=== PATIENT | male | born 1970 | race Caucasian/White ===

== ENCOUNTER → 2017-06-09 | Outpatient (CLI) | payer OTHER ==
--- NOTE | 2017-06-09 08:33 | MR ---
EXAMINATION TYPE: MR brain wo/w con DATE OF EXAM: 06/09/2017 COMPARISON: Outside CT head 05/07/2017 HISTORY: 47-year-old male Migraines without aura, not intractable TECHNIQUE: Multiplanar, multisequence images of the brain and brainstem were acquired before and aft er administration of 7 mL IV Gadavist. Diffusion weighted imaging is performed. FINDINGS: No evidence for acute infarction, hemorrhage, mass, mass effect, midline shift, herniation, effacemen t of basal cisterns, or extra-axial fluid collection. The ventricles and sulci are age-appropriate. Major intracranial flow voids are intact. T2/FLAIR weighted sequences show a solitary 5 mm bright signal focus in the subcortical left frontal lobe. Midline structures demonstrate normal morphology. The craniocervical junction is normal. Post contrast images demonstrate no evidence of pathologic enhancement. Dural venous sinuses are pat ent. Mild mucosal thickening maxillary sinuses and frontal sinuses. Moderate scattered mucosal thickening throughout the ethmoid air cells. Mucosal retention cyst inferior right maxillary sinus. Globes are i ntact. IMPRESSION: 1. No acute intracranial abnormality seen. 2. Solitary 5 mm bright white matter focus in the left frontal lobe. This is nonspecific but could re present an area of ischemic demyelination related to chronic migraines. 3. Mild to moderate chronic paranasal sinus disease.
== END | disposition home or self-care (01) ==
LOC: RADMRIMAIN 07:02
PROVIDERS: ATTEND Family Medicine
DX: R90.89 Other abnormal findings on diagnostic imaging of central nervous system (principal); Z86.69 Personal history of other diseases of the nervous system and sense organs
CPT/HCPCS: 70553; A9581

== ENCOUNTER 2018-02-21 14:28 | Emergency (ER) | payer OTHER ==
[2018-02-21] MEDS ORDERED: SODIUM CHLORIDE 0.9% 500 ML 500 ML IV STA (14:55)
--- NOTE | 2018-02-21 14:58 | ED ---
General Adult HPI - General Chief complaint: Arrhythmia/Palpitations Stated complaint: Palpitations Time Seen by Provider: 02/21/18 14:30 Source: patient, RN notes reviewed Mode of arrival: ambulatory Limitations: no limitations - History of Present Illness Initial comments: This is a 47-year-old male who smokes he comes into the emergency department today because he has been feeling some palpitations. Patient states they usually last about 1-2 seconds and then they go away. Patient states it happened 3 times yesterday while he was at work. Patient states he doesn't typically happen when he is lying around. Patient states when it does occur it seems to take his breath away for just that second. Patient denies any diaphoretic episodes. Patient denies any pain. Patient denies any nausea. Patient denies abdominal pain patient denies any swelling to the legs or calf tenderness. Patient states recently had a cold is been getting slowly better. Patient states he was coughing up sputum but no longer. Patient denies any lightheadedness dizziness or near syncopal episode. - Related Data Previous Rx's Medication Instructions Recorded Naproxen [Naprosyn] 500 mg PO Q12HR #60 tab 03/06/14 Allergies Allergy/AdvReac Type Severity Reaction Status Date / Time Opioids - Morphine Analogues AdvReac Nausea & Verified 02/21/18 14:33 Vomiting Review of Systems ROS Statement: Those systems with pertinent positive or pertinent negative responses have been documented in the HPI. ROS Other: All systems not noted in ROS Statement are negative. Past Medical History Past Medical History: Mitral Valve Prolapse (MVP), Pneumonia Additional Past Medical History / Comment(s): Bronchitis usually every year, kidney stones History of Any Multi-Drug Resistant Organisms: None Reported Past Surgical History: No Surgical Hx Reported Past Psychological History: No Psychological Hx Reported Smoking Status: Current every day smoker Past Alcohol Use History: Rare Past Drug Use History: None Reported General Exam - General Exam Comments Initial Comments: GENERAL: Patient is well-developed and well-nourished. Patient is nontoxic and well- hydrated and is in mild distress. ENT: Neck is soft and supple. No significant lymphadenopathy is noted. Oropharynx is clear. Moist mucous membranes. Neck has full range of motion without eliciting any pain. EYES: The sclera were anicteric and conjunctiva were pink and moist. Extraocular movements were intact and pupils were equal round and reactive to light. Eyelids were unremarkable. PULMONARY: Unlabored respirations. Good breath sounds bilaterally. No audible rales rhonchi or wheezing was noted. CARDIOVASCULAR: There is a regular rate and rhythm without any murmurs gallops or rubs. ABDOMEN: Soft and nontender with normal bowel sounds. No palpable organomegaly was noted. There is no palpable pulsatile mass. SKIN: Skin is clear with no lesions or rashes and otherwise unremarkable. NEUROLOGIC: Patient is alert and oriented x3. Cranial nerves II through XII are grossly intact. Motor and sensory are also intact. Normal speech, volume and content. Symmetrical smile. MUSCULOSKELETAL: Normal extremities with adequate strength and full range of motion. No lower extremity swelling or edema. No calf tenderness. LYMPHATICS: No significant lymphadenopathy is noted PSYCHIATRIC: Normal psychiatric evaluation. Limitations: no limitations Course Vital Signs 02/21/18 02/21/18 14:32 15:00 Temperature 97.6 F Pulse Rate 91 80 Respiratory 18 20 Rate Blood Pressure 145/88 137/90 O2 Sat by Pulse 100 99 Oximetry Medical Decision Making - Medical Decision Making EKG shows normal sinus rhythm at 81 bpm AL interval 266 dresses 90 QT interval 360 QTC is 427. Patient's EKG shows no ST segment elevation or depression Patient has been a symptomatically throughout his ED stay. Chest x-ray shows no acute abnormalities - Lab Data Result diagrams: 02/21/18 14:50 02/21/18 14:50 Lab Results 02/21/18 02/21/18 02/21/18 Range/Units 14:50 14:50 14:50 WBC 4.6 (3.8-10.6) k/uL RBC 5.25 (4.30-5.90) m/uL Hgb 15.8 (13.0-17.5) gm/dL Hct 47.6 (39.0-53.0) % MCV 90.7 (80.0-100.0) fL MCH 30.1 (25.0-35.0) pg MCHC 33.2 (31.0-37.0) g/dL RDW 12.6 (11.5-15.5) % Plt Count 217 (150-450) k/uL Neutrophils % 59 % Lymphocytes % 25 % Monocytes % 10 % Eosinophils % 2 % Basophils % 1 % Neutrophils # 2.7 (1.3-7.7) k/uL Lymphocytes # 1.1 (1.0-4.8) k/uL Monocytes # 0.5 (0-1.0) k/uL Eosinophils # 0.1 (0-0.7) k/uL Basophils # 0.0 (0-0.2) k/uL PT (9.0-12.0) sec INR (<1.2) APTT (22.0-30.0) sec D-Dimer (<0.60) mg/L FEU Sodium 140 (137-145) mmol/L Potassium 4.2 (3.5-5.1) mmol/L Chloride 107 (98-107) mmol/L Carbon Dioxide 26 (22-30) mmol/L Anion Gap 7 mmol/L BUN 9 (9-20) mg/dL Creatinine 0.93 (0.66-1.25) mg/dL Est GFR (CKD-EPI)AfAm >90 (>60 ml/min/1.73 sqM) Est GFR (CKD-EPI)NonAf >90 (>60 ml/min/1.73 sqM) Glucose 117 H (74-99) mg/dL Calcium 9.3 (8.4-10.2) mg/dL Magnesium 2.0 (1.6-2.3) mg/dL Total Bilirubin 0.5 (0.2-1.3) mg/dL AST 21 (17-59) U/L ALT 27 (21-72) U/L Alkaline Phosphatase 72 (38-126) U/L Total Creatine Kinase 60 (55-170) U/L CK-MB (CK-2) <0.2 (0.0-2.4) ng/mL CK-MB (CK-2) Rel Index Troponin I <0.012 (0.000-0.034) ng/mL Total Protein 7.0 (6.3-8.2) g/dL Albumin 4.4 (3.5-5.0) g/dL TSH 1.310 (0.465-4.680) mIU/L 02/21/18 Range/Units 14:50 WBC (3.8-10.6) k/uL RBC (4.30-5.90) m/uL Hgb (13.0-17.5) gm/dL Hct (39.0-53.0) % MCV (80.0-100.0) fL MCH (25.0-35.0) pg MCHC (31.0-37.0) g/dL RDW (11.5-15.5) % Plt Count (150-450) k/uL Neutrophils % % Lymphocytes % % Monocytes % % Eosinophils % % Basophils % % Neutrophils # (1.3-7.7) k/uL Lymphocytes # (1.0-4.8) k/uL Monocytes # (0-1.0) k/uL Eosinophils # (0-0.7) k/uL Basophils # (0-0.2) k/uL PT 9.7 (9.0-12.0) sec INR 0.9 (<1.2) APTT 25.9 (22.0-30.0) sec D-Dimer 0.57 (<0.60) mg/L FEU Sodium (137-145) mmol/L Potassium (3.5-5.1) mmol/L Chloride (98-107) mmol/L Carbon Dioxide (22-30) mmol/L Anion Gap mmol/L BUN (9-20) mg/dL Creatinine (0.66-1.25) mg/dL Est GFR (CKD-EPI)AfAm (>60 ml/min/1.73 sqM) Est GFR (CKD-EPI)NonAf (>60 ml/min/1.73 sqM) Glucose (74-99) mg/dL Calcium (8.4-10.2) mg/dL Magnesium (1.6-2.3) mg/dL Total Bilirubin (0.2-1.3) mg/dL AST (17-59) U/L ALT (21-72) U/L Alkaline Phosphatase (38-126) U/L Total Creatine Kinase (55-170) U/L CK-MB (CK-2) (0.0-2.4) ng/mL CK-MB (CK-2) Rel Index Troponin I (0.000-0.034) ng/mL Total Protein (6.3-8.2) g/dL Albumin (3.5-5.0) g/dL TSH (0.465-4.680) mIU/L Disposition Clinical Impression: Palpitations Disposition: HOME SELF-CARE Instructions: Heart Palpitations (ED) Is patient prescribed a controlled substance at d/c from ED?: No Referrals: Romario Daniel MD [Primary Care Provider] - 1-2 days Time of Disposition: 16:30
[2018-02-21 15:29] LABS: ALT 27 U/L (21-72); AST 21 U/L (17-59); Albumin 4.4 g/dL (3.5-5.0); Alkaline Phosphatase 72 U/L (38-126); Anion Gap 7 mmol/L; Blood Urea Nitrogen 9 mg/dL (9-20); Calcium 9.3 mg/dL (8.4-10.2); Carbon Dioxide 26 mmol/L (22-30); Chloride 107 mmol/L (98-107); Glucose 117 mg/dL (74-99); Potassium 4.2 mmol/L (3.5-5.1); Sodium 140 mmol/L (137-145); Total Bilirubin 0.5 mg/dL (0.2-1.3)
[2018-02-21 15:31] LABS: D-Dimer 0.57 mg/L FEU (<0.60); INR 0.9 (<1.2); Partial Thromboplastin Time 25.9 sec (22.0-30.0); Prothrombin Time 9.7 sec (9.0-12.0)
[2018-02-21 15:37] LABS: Basophils % (A) 1 %; Eosinophils # (A) 0.1 k/uL (0-0.7); Eosinophils % (A) 2 %; HCT 47.6 % (39.0-53.0); HGB 15.8 gm/dL (13.0-17.5); Lymphocytes # (A) 1.1 k/uL (1.0-4.8); Lymphocytes % (A) 25 %; MCH 30.1 pg (25.0-35.0); MCHC 33.2 g/dL (31.0-37.0); MCV 90.7 fL (80.0-100.0); Mean Platelet Volume 6.4; Monocytes # (A) 0.5 k/uL (0-1.0); Monocytes % (A) 10 %; Neutrophils # (A) 2.7 k/uL (1.3-7.7); Neutrophils % (A) 59 %; Platelet Count 217 k/uL (150-450); RBC 5.25 m/uL (4.30-5.90); RDW 12.6 % (11.5-15.5); WBC 4.6 k/uL (3.8-10.6)
[2018-02-21 15:39] LABS: Creatine Kinase 60 U/L (55-170)
--- NOTE | 2018-02-21 15:44 | XR ---
EXAMINATION TYPE: XR chest 2V DATE OF EXAM: 02/21/2018 COMPARISON: Prior chest x-ray 11/06/2013 HISTORY: Dysrhythmia TECHNIQUE: Frontal and lateral views of the chest are obtained. FINDINGS: There is no focal air space opacity, pleural effusion, or pneumothorax seen. The cardiac silhouette size is within normal limits. The osseous structures are intact. There are overlying car diac leads. IMPRESSION: No acute cardiopulmonary process.
[2018-02-21 15:52] LABS: Creatine Kinase MB <0.2 ng/mL (0.0-2.4); Troponin I <0.012 ng/mL (0.000-0.034)
[2018-02-21 16:42] VITALS: BP 128/88; PULSE 78; RESP 18; TEMP 98.2
== END 2018-02-21 16:38 | disposition home or self-care (01) ==
LOC: EC 14:28
DX: R00.2 Palpitations (principal); I34.1 Nonrheumatic mitral (valve) prolapse; F17.200 Nicotine dependence, unspecified, uncomplicated; Z88.5 Allergy status to narcotic agent
CPT/HCPCS: 36415; 71046; 80053; 82550; 82553; 83735; 84443; 84484; 85025; 85379; 85610; 85730; 93005; 99285

== ENCOUNTER 2018-03-16 17:15 | Emergency (ER) | payer OTHER ==
[2018-03-16 17:31] VITALS: RESP 18
[2018-03-16 18:58] VITALS: BP 123/84; PULSE 94; TEMP 98.2
--- NOTE | 2018-03-16 19:31 | ED ---
General Adult HPI - General Chief complaint: ENT Stated complaint: Ear/Neck swelling Time Seen by Provider: 03/16/18 18:52 Source: patient, RN notes reviewed Mode of arrival: ambulatory Limitations: no limitations - History of Present Illness Initial comments: 47-year-old male presents to the emergency department for a chief complaint of erythema about the left ear. Patient states this started 2 days ago. He states is was scaling yesterday but today does not appear to be scaly. He states since that time he has had some pain and swelling anterior and posterior to the left ear. Patient does admit to having a cold recently. Patient denies fevers or chills. Patient denies any tooth pain. Patient denies any history of diabetes. Patient has no other complaints at this time including shortness of breath, chest pain, abdominal pain, nausea or vomiting, headache, or visual changes. - Related Data Home Medications Medication Instructions Recorded Confirmed Butalb/APAP/Caff 50-325-40Mg 1 tab PO BID 03/16/18 03/16/18 [Fioricet 50-325-40] Ibuprofen [Motrin] 800 mg PO BID 03/16/18 03/16/18 Allergies Allergy/AdvReac Type Severity Reaction Status Date / Time Opioids - Morphine Analogues AdvReac Nausea & Verified 03/16/18 19:13 Vomiting Review of Systems ROS Statement: Those systems with pertinent positive or pertinent negative responses have been documented in the HPI. ROS Other: All systems not noted in ROS Statement are negative. Past Medical History Past Medical History: Mitral Valve Prolapse (MVP), Pneumonia Additional Past Medical History / Comment(s): Bronchitis usually every year, kidney stones History of Any Multi-Drug Resistant Organisms: None Reported Past Surgical History: No Surgical Hx Reported Past Psychological History: No Psychological Hx Reported Smoking Status: Current every day smoker Past Alcohol Use History: Rare Past Drug Use History: None Reported General Exam Limitations: no limitations General appearance: alert, in no apparent distress Head exam: Present: atraumatic, normocephalic. Absent: normal inspection (4 cm x 4 cm area of mild erythema noted above the L ear) Eye exam: Present: normal appearance, PERRL, EOMI. Absent: scleral icterus, conjunctival injection, periorbital swelling ENT exam: Present: normal exam, normal oropharynx, mucous membranes moist, TM's normal bilaterally (90 erythematous tympanic membranes bilaterally), normal external ear exam (No edema or erythema noted of the ear canal, no tenderness to palpation of the mastoid process). Absent: other (No appreciable swelling noted anterior or posterior to the left ear. Patient does have some tenderness along the submandibular and posterior auricular lymph nodes. non erythematous, no evidence of cellulitic infection or abscess) Neck exam: Present: normal inspection, full ROM. Absent: tenderness, meningismus, lymphadenopathy Respiratory exam: Present: normal lung sounds bilaterally. Absent: respiratory distress, wheezes, rales, rhonchi, stridor Cardiovascular Exam: Present: regular rate, normal rhythm, normal heart sounds. Absent: systolic murmur, diastolic murmur, rubs, gallop, clicks Neurological exam: Present: alert, oriented X3, CN II-XII intact Psychiatric exam: Present: normal affect, normal mood Course Vital Signs 03/16/18 03/16/18 17:28 18:56 Temperature 98.1 F 98.2 F Pulse Rate 99 94 Respiratory 18 18 Rate Blood Pressure 152/89 123/84 O2 Sat by Pulse 99 98 Oximetry Medical Decision Making - Medical Decision Making 27-year-old male presents to the emergency department for a chief complaint of rash on scalp and left ear pain. This started yesterday. There is a 4 x 4 centimeter area of erythema noted above the left ear that was apparently scaly yesterday, no scaling today. No vesicles noted on this. No itching or pruritus. Patient also complaining of pain anterior and posterior to the left ear. No appreciable swelling noted. No erythema. Patient does have small submandibular and posterior or regular lymph nodes noted which is likely a zinc patient's tenderness. Tympanic membrane is within normal limits, no otitis media. No evidence of otitis externa, no mastoid tenderness. At this time symptoms likely stemming from fungal irritation. Patient will buy Selsun Blue [id number] I did offer to give scripts but he does not want this. Patient did also have a cold last week and may have eustachian tube dysfunction causing ear pain, will use nasal spray as well. Did discuss following up with primary care and dermatology. Discussed returning here if symptoms are worsening instead of resolving. Disposition Clinical Impression: Rash Disposition: HOME SELF-CARE Condition: Good Instructions (If sedation given, give patient instructions): Tinea Capitis (ED) Additional Instructions: Please use Selsun Blue [id number]. Use nasal spray as well. Please follow- up with primary care and dermatology in 1-2 days. If symptoms are worsening or not resolving or you develop fevers return here to the emergency department. Is patient prescribed a controlled substance at d/c from ED?: No Referrals: Romario Daniel MD [Primary Care Provider] - 1-2 days Diane Sanchez MD [STAFF PHYSICIAN] - 1-2 days Time of Disposition: 19:37
== END 2018-03-16 19:54 | disposition home or self-care (01) ==
LOC: EC 17:15
DX: R21 Rash and other nonspecific skin eruption (principal); H92.02 Otalgia, left ear; F17.200 Nicotine dependence, unspecified, uncomplicated; Z79.899 Other long term (current) drug therapy; Z79.1 Long term (current) use of non-steroidal anti-inflammatories (NSAID); Z88.5 Allergy status to narcotic agent
CPT/HCPCS: 99283

== ENCOUNTER 2018-07-04 14:53 | Emergency (ER) | payer OTHER ==
[2018-07-04] MEDS ORDERED: DIAZEPAM 5 MG/ML 2 ML INJ IM ONE (15:20)
[2018-07-04] MEDS ORDERED: methylPREDNISolone SOD SUCCI 125 MG/2 ML VIAL IM ONE (15:20)
[2018-07-04] MEDS ORDERED: KETOROLAC 60 MG/2 ML VIAL IM STA (15:20)
--- NOTE | 2018-07-04 15:25 | ED ---
General Adult HPI - General Source: patient, RN notes reviewed, old records reviewed Mode of arrival: ambulatory Limitations: no limitations <Carmella Leroy - Last Filed: 07/04/18 16:44> <Aurora Villa - Last Filed: 07/04/18 16:58> - General Chief complaint: Neck Pain/Injury Stated complaint: Neck pain Time Seen by Provider: 07/04/18 15:14 - History of Present Illness Initial comments: 48-year-old male presents emergency department today for evaluation complains of neck Pain with minimal range of motion. Patient reports that he's been having symptoms for the past 4 days. He states he has pain with left and right movement of the neck. He denies any fall or trauma. He states ever had this happen before. He states he's had lack of sleep due to the neck pain. He feels that his muscles are tight throughout his scalp, neck and shoulder. (Carmella Leroy) - Related Data Home Medications Medication Instructions Recorded Confirmed Butalb/APAP/Caff 50-325-40Mg 1 tab PO BID 03/16/18 03/16/18 [Fioricet 50-325-40] Ibuprofen [Motrin] 800 mg PO BID 03/16/18 03/16/18 Previous Rx's Medication Instructions Recorded Dexamethasone 0.75 mg PO DAILY #12 tab 07/04/18 Diazepam [Valium] 5 mg PO Q8HR PRN 3 Days #9 tab 07/04/18 Ibuprofen 600 mg PO TID #20 tablet 07/04/18 Allergies Allergy/AdvReac Type Severity Reaction Status Date / Time Opioids - Morphine Analogues AdvReac Nausea & Verified 07/04/18 15:01 Vomiting Review of Systems ROS Other: All systems not noted in ROS Statement are negative. <Carmella Leroy - Last Filed: 07/04/18 16:44> ROS Other: All systems not noted in ROS Statement are negative. <Aurora Villa - Last Filed: 07/04/18 16:58> ROS Statement: Those systems with pertinent positive or pertinent negative responses have been documented in the HPI. Past Medical History Past Medical History: Mitral Valve Prolapse (MVP), Pneumonia Additional Past Medical History / Comment(s): Bronchitis usually every year, kidney stones History of Any Multi-Drug Resistant Organisms: None Reported Past Surgical History: No Surgical Hx Reported Past Psychological History: No Psychological Hx Reported Smoking Status: Current every day smoker Past Alcohol Use History: Rare Past Drug Use History: None Reported <Carmella Leroy - Last Filed: 07/04/18 16:44> General Exam Limitations: no limitations General appearance: alert, in no apparent distress Head exam: Present: atraumatic, normocephalic, normal inspection Eye exam: Present: normal appearance, PERRL, EOMI. Absent: scleral icterus, conjunctival injection, periorbital swelling ENT exam: Present: normal exam, mucous membranes moist Neck exam: Present: normal inspection, tenderness (Patient has tenderness and spasms over the right paraspinal cervical muscles.). Absent: meningismus, lymphadenopathy Respiratory exam: Present: normal lung sounds bilaterally. Absent: respiratory distress, wheezes, rales, rhonchi, stridor Cardiovascular Exam: Present: regular rate, normal rhythm, normal heart sounds. Absent: systolic murmur, diastolic murmur, rubs, gallop, clicks GI/Abdominal exam: Present: soft, normal bowel sounds. Absent: distended, tenderness, guarding, rebound, rigid Extremities exam: Present: normal inspection, full ROM, normal capillary refill. Absent: tenderness, pedal edema, joint swelling, calf tenderness Back exam: Present: normal inspection Neurological exam: Present: alert, oriented X3, CN II-XII intact Psychiatric exam: Present: normal affect, normal mood Skin exam: Present: warm, dry, intact, normal color. Absent: rash <Carmella Leroy - Last Filed: 07/04/18 16:44> - General Exam Comments Initial Comments: 48-year-old male. Alert and oriented 3. No significant distress. (Carmella Leroy) Course <Carmella Leroy - Last Filed: 07/04/18 16:44> Vital Signs 07/04/18 07/04/18 07/04/18 14:59 15:40 15:45 Temperature 98.5 F Pulse Rate 99 48 L 48 L Respiratory 16 18 18 Rate Blood Pressure 124/84 75/39 98/77 O2 Sat by Pulse 98 99 97 Oximetry 07/04/18 07/04/18 15:50 15:55 Temperature Pulse Rate 81 80 Respiratory 18 18 Rate Blood Pressure 119/77 125/74 O2 Sat by Pulse 98 97 Oximetry - Reevaluation(s) Reevaluation #1: 07/04/18 16:44 All Patient was receiving IM injections he had a vasovagal episode. Blood pressure was low 70/40. IV was established Patient is given a liter bolus, juice. EKG is normal. Patient is reevaluated afterwards feels better at this time. Blood pressures normalized. (Carmella Leroy) Medical Decision Making Interpretation: no acute changes, normal EKG, other - Radiology Data Radiology results: report reviewed <Carmella Leroy - Last Filed: 07/04/18 16:44> <Aurora Villa - Last Filed: 07/04/18 16:58> - Medical Decision Making Patient is a 48-year-old male presents today with 4 days of neck stiffness, concern for torticollis. He has no fall or trauma to the neck. Patient is given IM Solu-Medrol and Toradol. At that time with receiving IM injections and standing up to receive them over his gluteus, Patient had a vasovagal episode. Blood pressure drop. IV was established Patient was given IV fluids, being conscious and resting heavily. He does state that his neck pain is improved but still sore. I was going to offer a Patient IM Valium however after vagal episode discussed using oral medication. Patient will be discharged at this time with diagnosis of torticollis, discharge or steroid anti-inflammatory medicine and muscle relaxer. Discussed ACP follow-up. (Carmella Leroy) I was available for consultation in the emergency department. The history and physical exam were done by the midlevel provider. I was consulted for this patient's care. I reviewed the case with the midlevel provider and based on their presentation of the patient, I agree with the assessment, medical decision making and plan of care as documented. Chart was dictated using [employer] dictation software. Attempts were made to correct any dictation errors however some typographical errors may persist. (Aurora Villa) 07/04/18 16:17 EKG shows normal sinus rhythm. Ventricular rate 83 beats were minute. VT interval is 160 ms. QRS duration is 100 ms. QT QTc is 370/434 ms. (Carmella Leroy) Disposition Is patient prescribed a controlled substance at d/c from ED?: No Time of Disposition: 16:46 <Carmella Leroy - Last Filed: 07/04/18 16:44> <Aurora Villa Austin - Last Filed: 07/04/18 16:58> Clinical Impression: Torticollis, spasmodic, Vasovagal episode Disposition: HOME SELF-CARE Condition: Good Instructions (If sedation given, give patient instructions): Cervical Strain (ED), Spasmodic Torticollis (ED) Additional Instructions: Patient has take medications as prescribed. Alternate between heat and ice over the neck. Follow up with her primary care doctor. Return to the emergency department if any alarming signs or symptoms occur. Prescriptions: Dexamethasone 0.75 mg PO DAILY #12 tab Ibuprofen 600 mg PO TID #20 tablet Diazepam [Valium] 5 mg PO Q8HR PRN 3 Days #9 tab PRN Reason: Spasms Referrals: Romario Daniel MD [Primary Care Provider] - 1-2 days
[2018-07-04] MEDS ORDERED: DIAZEPAM 5 MG TAB PO STA (16:27)
[2018-07-04 16:58] VITALS: BP 118/80; PULSE 76; RESP 16; TEMP 98.3
== END 2018-07-04 16:58 | disposition home or self-care (01) ==
LOC: EC 14:53
DX: G24.3 Spasmodic torticollis (principal); R55 Syncope and collapse; F17.200 Nicotine dependence, unspecified, uncomplicated; Z79.899 Other long term (current) drug therapy; Z88.5 Allergy status to narcotic agent
CPT/HCPCS: 93005; 99284; 96372 ×2; J2930; J1885

== ENCOUNTER → 2018-07-20 | Outpatient (CLI) | payer OTHER ==
--- NOTE | 2018-07-20 12:48 | MR ---
EXAMINATION TYPE: MR knee RT wo con DATE OF EXAM: 07/20/2018 COMPARISON: Plain film 07/08/2018 HISTORY: Right knee pain TECHNIQUE: Multiplanar, multisequence imaging of the right knee is performed without IV contrast. FINDINGS: MEDIAL MENISCUS: There is linear increased signal within the posterior horn of the medial meniscus on T1 and T2-weighted imaging which may correspond to the chondrocalcinosis seen on plain film. There i s on coronal image 18 and sagittal image #7 questionable abnormal extension of the signal to the unde rsurface of the meniscus, there may be a local meniscal cyst present medially. LATERAL MENISCUS: Anterior and posterior horns are intact without tear. CRUCIATE LIGAMENTS: The anterior and posterior cruciate ligaments are intact and unremarkable. COLLATERAL LIGAMENTS: The medial collateral ligament and lateral collateral ligament complex are inta ct and unremarkable. EXTENSOR MECHANISM: Visualized quadriceps and patellar tendons are intact. EFFUSION: Minimal joint effusion in the suprapatellar location. POPLITEAL CYST: No popliteal/cooper cyst. TRICOMPARTMENT SPACES: Maintained CARTILAGE: Some mild heterogeneity in the cartilage in the medial and lateral compartments is noted. BONE MARROW SIGNAL: No focal abnormal marrow signal is appreciated. OTHER: Some fluid signal at the origins of the gastrocnemius musculature could represent partial tea rs or strain. IMPRESSION: Findings suspicious for tear of the medial meniscus within the body portion as described. Chondrocalc inosis and additional findings above.
== END ==
LOC: RADMRIMAIN 07:37
PROVIDERS: ATTEND Orthopaedic Surgery
DX: M11.261 Other chondrocalcinosis, right knee (principal); R93.7 Abnormal findings on diagnostic imaging of other parts of musculoskeletal system

== ENCOUNTER 2018-08-19 09:31 | Day surgery (SDC) | payer OTHER ==
[2018-08-11 17:46] VITALS: BMI 20.9
--- NOTE | 2018-08-18 10:24 | HP ---
HISTORY AND PHYSICAL Surgery is scheduled for 08/19/2018. Akil Wilson is a 48-year-old patient who is seen with progressive right knee pain. After treatment options were discussed with him, he elected to proceed with right knee arthroscopy. Consent regarding the procedure was obtained. PAST MEDICAL HISTORY: His past medical history is noncontributory. PAST SURGICAL HISTORY: Noncontributory. DAILY MEDICATIONS: None. ALLERGIES: Allergies are to OPIOIDS. SOCIAL HISTORY: He smokes 1 pack of cigarettes daily. PHYSICAL EXAMINATION: Physical evaluation of the right knee: Range of motion is -1 / 2 to 110 degrees. Mild effusion. There is tenderness along the medial joint line with positive medial Tristen's. His ligaments are stable. Hip rotation is without pain. Distal neurovascular exam is intact. Radiographs of the right knee revealed mild osteoarthritic changes. An MRI of the right knee revealed medial meniscal tear. IMPRESSION: 1. Internal derangement right knee with medial meniscal tear. 2. Tobacco use. PLAN: Right knee arthroscopy with partial meniscectomy and debridement. MMODL / IJN: [id number] /
[~2018-08-19 09:31] MED LIST: LACTATED RINGERS 1,000 ML IV SCH; LIDOCAINE 1% 20 ML VIAL (10MG/ML) FOR IV START INTRADERMA PRN; ONDANSETRON 4 MG/2 ML VIAL IVP ONE; fentaNYL (PF) 50 MCG/ML 2 ML AMP IVP PRN
[2018-08-19] MEDS ORDERED: DEXAMETHASONE SOD PHOS (MDV) 100 MG/10 ML VIAL IV ONE (10:35)
[2018-08-19] MEDS ORDERED: fentaNYL (PF) 50 MCG/ML 2 ML AMP ONE (11:00)
[2018-08-19] MEDS ORDERED: MIDAZOLAM 2 MG/2 ML VIAL ONE (11:00)
[2018-08-19] MEDS ORDERED: PROPOFOL 10 MG/ML 20 ML VIAL IV ONE (11:00)
[2018-08-19] MEDS ORDERED: LIDOCAINE 1% INJ 10MG/ML (20 ML MDV) ONE (11:00)
[2018-08-19] MEDS ORDERED: BUPIVACAINE (PF) 0.5% 30 ML VIAL INTRAARTIC ONE ×2 (11:22→11:36)
--- NOTE | 2018-08-19 11:48 | P.OP ---
Date of Procedure: 08/19/18 Preoperative Diagnosis: Internal derangement right knee Postoperative Diagnosis: 1. Tear medial meniscus right knee 2. Grade 2/3 chondromalacia medial femoral condyle right knee 3. Reactive synovitis medial, lateral and suprapatellar compartments right knee Procedure(s) Performed: 1. Arthroscopic partial medial meniscectomy right knee 2. Arthroscopic chondroplasty medial femoral condyle right knee 3. Arthroscopic partial synovectomy medial, lateral and suprapatellar compartments right knee Anesthesia: GETA, local Surgeon: Shar Matta Estimated Blood Loss (ml): 7 Pathology: none sent Condition: stable Disposition: PACU Indications for Procedure: 48-year-old patient seen with progressive right knee pain. After having treatment options discussed, he elected to proceed with arthroscopy. Operative Findings: See description of procedure Description of Procedure: Patient was taken to the operative suite. Patient underwent a general anesthetic by the department of anesthesia. Patient was given preoperative antibiotics. The right lower extremity was placed in a well-padded arthroscopic leg xavier. The right leg was prepped and draped in the normal sterile orthopedic fashion. A lateral parapatellar and suprapatellar incision was made. Trochars were inserted. Arthroscopy was initiated. Suprapatellar pouch revealed diffuse thick reactive synovitis. The patellofemoral joint appeared to articulate congruently. There was mild grade 1 chondromalacia with no osteochondral tears present. The scope was guided into the medial gutter. No loose bodies or plica were identified The scope was then guided into the medial compartment. A medial parapatellar incision was made. Trocar inserted followed by probe. There was a intrasubstance white zone tear involving the posterior medial meniscus. There were grade 2/3 chondromalacia changes of the medial femoral condyle with some osteochondral flap tears present. There was thick reactive synovitis anteriorly. I performed a partial medial meniscectomy getting down to stable meniscal tissue. I performed a chondroplasty of the medial femoral condyle getting down to stable osteochondral tissue. I performed a partial synovectomy decompressing the reactive synovitis. The residual meniscus was now probed and found to be stable. The residual osteochondral surface was stable. There was good decompression synovitis. Scope and probe were then guided into the intercondylar notch. Cruciates were identified, probed and found to be stable. The scope and probe were then guided into lateral compartment. Lateral meniscus was probed and found to be stable. There was some thick reactive synovitis anteriorly. There was no chondromalacia. I performed a partial synovectomy decompressing the reactive synovitis. Shaver was removed. There was good decompression synovitis. The scope was in guided back into the suprapatellar compartment. I introduced a motorized shaver into the super patellar compartment. I debrided piecemeal fragments of meniscus I encountered. I performed a partial synovectomy. Shaver was removed. I took one more look on the entire knee, no residual debris. Instruments were now removed from the joint. The joint was infiltrated with .25% Marcaine. Steri- Strips were applied to the portal sites. Sterile dressings were applied. The patient was placed into a ABIGAIL hose. No tourniquet was utilized. The patient was awakened, transferred to a bed and taken to recovery stable satisfactory condition.
[2018-08-19 11:52] VITALS: TEMP 97.8
[2018-08-19] MEDS ORDERED: KETOROLAC 30 MG/ML 1 ML VIAL IVP ONE (11:53)
[2018-08-19] MEDS: HYDROmorphone 1 MG/ML 1 ML SYRINGE IVP ONE ×2 (12:08→12:14)
[2018-08-19] MEDS ORDERED: traMADol 50 MG TAB PO ONE ×2 (12:50)
[2018-08-19 13:35] VITALS: BP 120/68; PULSE 70; RESP 18
== END 2018-08-19 13:40 | disposition home or self-care (01) ==
LOC: OR 09:31
PROVIDERS: ATTEND Orthopaedic Surgery
DX: S83.241A Other tear of medial meniscus, current injury, right knee, initial encounter (principal); X58.XXXA Exposure to other specified factors, initial encounter; M94.261 Chondromalacia, right knee; M65.861 Other synovitis and tenosynovitis, right lower leg; M17.11 Unilateral primary osteoarthritis, right knee; I34.1 Nonrheumatic mitral (valve) prolapse; G43.909 Migraine, unspecified, not intractable, without status migrainosus; F17.210 Nicotine dependence, cigarettes, uncomplicated; Z79.1 Long term (current) use of non-steroidal anti-inflammatories (NSAID); Z88.5 Allergy status to narcotic agent
CPT/HCPCS: 29881; 29876; J2250; J2405; J2001; J3010; J1885; J1170; J1100; J2704

== ENCOUNTER 2019-01-01 17:03 | Emergency (ER) | payer OTHER ==
[2019-01-01 17:21] VITALS: TEMP 97.7
--- NOTE | 2019-01-01 17:23 | ED ---
ENT HPI - General Chief complaint: ENT Stated complaint: Throat Pain Time Seen by Provider: 01/01/19 17:21 Source: patient, RN notes reviewed, old records reviewed Mode of arrival: ambulatory Limitations: no limitations - History of Present Illness Initial comments: This is a 48-year-old male the ER for evaluation patient does say for evaluation regarding sore throat sore throat and neck pain right-sided neck pain difficulty swallowing. Patient is able to eat and drink but when he is eating and drinking sometimes has to clear her throat denying fevers. Symptoms 2 weeks he does have follow-up with primary care first week of January. Otherwise patient has no fevers just complaining of some pain and occasionally difficulty with swallowing. MD complaint: sore throat, difficulty swallowing -: week(s) Location: throat Severity: mild Severity scale (1-10): 2 Quality: stabbing, aching Consistency: constant (Pain), intermittent (Difficulty swallowing) Improves with: none Worsens with: swallowing, eating Context- Dental: history of dental caries, poor dental care Associated Symptoms: pain with swallowing, sore throat - Related Data Home Medications Medication Instructions Recorded Confirmed Ondansetron [Zofran] 4 mg PO Q8HR PRN 08/19/18 08/19/18 Previous Rx's Medication Instructions Recorded Ibuprofen 600 mg PO TID #20 tablet 07/04/18 traMADol HCl [Ultram] 50 mg PO Q6H PRN #15 tab 08/19/18 Allergies Allergy/AdvReac Type Severity Reaction Status Date / Time Opioids - Morphine Analogues AdvReac Nausea & Verified 01/01/19 17:20 Vomiting Review of Systems ROS Statement: Those systems with pertinent positive or pertinent negative responses have been documented in the HPI. ROS Other: All systems not noted in ROS Statement are negative. Past Medical History Past Medical History: Mitral Valve Prolapse (MVP) Additional Past Medical History / Comment(s): Bronchitis usually every year, kidney stones History of Any Multi-Drug Resistant Organisms: None Reported Past Surgical History: No Surgical Hx Reported, Orthopedic Surgery Additional Past Surgical History / Comment(s): ORAL SURGERY Past Anesthesia/Blood Transfusion Reactions: No Reported Reaction Past Psychological History: No Psychological Hx Reported Smoking Status: Current every day smoker Past Alcohol Use History: Occasional Past Drug Use History: None Reported - Past Family History Sister(s) Family Medical History: Cancer General Exam Limitations: no limitations General appearance: alert, in no apparent distress Head exam: Present: atraumatic, normocephalic, normal inspection Eye exam: Present: normal appearance, PERRL, EOMI. Absent: scleral icterus, conjunctival injection, periorbital swelling ENT exam: Present: normal exam, mucous membranes moist Neck exam: Present: normal inspection. Absent: tenderness, meningismus, lymphadenopathy Respiratory exam: Present: normal lung sounds bilaterally. Absent: respiratory distress, wheezes, rales, rhonchi, stridor Cardiovascular Exam: Present: regular rate, normal rhythm, normal heart sounds. Absent: systolic murmur, diastolic murmur, rubs, gallop, clicks GI/Abdominal exam: Present: soft, normal bowel sounds. Absent: distended, tenderness, guarding, rebound, rigid Extremities exam: Present: normal inspection, full ROM, normal capillary refill. Absent: tenderness, pedal edema, joint swelling, calf tenderness Back exam: Present: normal inspection Neurological exam: Present: alert, oriented X3, CN II-XII intact Psychiatric exam: Present: normal affect, normal mood Skin exam: Present: warm, dry, intact, normal color. Absent: rash Course Vital Signs 01/01/19 17:18 Temperature 97.7 F Pulse Rate 90 Respiratory 20 Rate Blood Pressure 138/88 O2 Sat by Pulse 99 Oximetry - Reevaluation(s) Reevaluation #1: 01/01/19 18:13 Medical record is reviewed Reevaluation #2: 01/01/19 18:13 Patient is able to eat and drink here in the ER Medical Decision Making - Medical Decision Making 48 male the ER for sore throat x-rays negative testing is negative. Patient given steroids will take Motrin for discomfort and follow-up with primary care - Lab Data Lab Results 01/01/19 Range/Units 17:30 Group A Strep Rapid Negative (Negative) - Radiology Data Radiology results: report reviewed (X-ray soft tissue neck is negative for acute disease), image reviewed Disposition Clinical Impression: Sore throat, Dysphagia Disposition: HOME SELF-CARE Condition: Good Instructions (If sedation given, give patient instructions): Dysphagia (ED), Strep Throat (ED) Is patient prescribed a controlled substance at d/c from ED?: No Referrals: Alex Hernandez MD [Primary Care Provider] - 1-2 days
[2019-01-01] MEDS ORDERED: DEXAMETHASONE SOD PHOSPHATE 10 MG/ML 1 ML VIAL IM STA (17:32)
--- NOTE | 2019-01-01 18:10 | XR ---
EXAMINATION TYPE: XR soft tissue neck 2 views DATE OF EXAM: 01/01/2019 COMPARISON: NONE HISTORY: Pain, sore throat TECHNIQUE: AP and lateral views FINDINGS: The airway is unremarkable. The epiglottis has normal appearance as do the aryepiglottic fo lds. The soft tissues are negative. Skeletal structures are unremarkable. No incidental findings. IMPRESSION: Negative examination.
[2019-01-01 19:10] VITALS: BP 131/89; PULSE 88; RESP 18
== END 2019-01-01 19:10 | disposition home or self-care (01) ==
LOC: EC 17:03
DX: J02.9 Acute pharyngitis, unspecified (principal); F17.200 Nicotine dependence, unspecified, uncomplicated; Z88.5 Allergy status to narcotic agent
CPT/HCPCS: 36415; 86308; 87081; 87430; 70360; 99284; 96372; J1100

== ENCOUNTER 2019-09-18 17:15 | Emergency (ER) | payer OTHER ==
[2019-09-18 18:29] LABS: ALT 16 U/L (4-49); AST 21 U/L (17-59); African American GFR (CKD) >90 (>60 ml/min/1.73 sqM); Albumin 4.8 g/dL (3.5-5.0); Alkaline Phosphatase 92 U/L (38-126); Anion Gap 10 mmol/L; Blood Urea Nitrogen 9 mg/dL (9-20); Calcium 9.8 mg/dL (8.4-10.2); Carbon Dioxide 24 mmol/L (22-30); Chloride 105 mmol/L (98-107); Glucose 114 mg/dL (74-99); Non-African American GFR(CKD) >90 (>60 ml/min/1.73 sqM); Potassium 4.5 mmol/L (3.5-5.1); Sodium 139 mmol/L (137-145); Total Bilirubin 0.4 mg/dL (0.2-1.3); Total Protein 7.8 g/dL (6.3-8.2)
[2019-09-18 18:30] LABS: Basophils % (A) 0 %; Eosinophils # (A) 0.2 k/uL (0-0.7); Eosinophils % (A) 1 %; HCT 51.7 % (39.0-53.0); HGB 16.5 gm/dL (13.0-17.5); Lymphocytes % (A) 17 %; MCH 30.4 pg (25.0-35.0); MCHC 31.8 g/dL (31.0-37.0); MCV 95.6 fL (80.0-100.0); Mean Platelet Volume 7.2; Monocytes # (A) 0.6 k/uL (0-1.0); Monocytes % (A) 5 %; Neutrophils % (A) 75 %; Platelet Count 247 k/uL (150-450); RBC 5.41 m/uL (4.30-5.90); RDW 13.4 % (11.5-15.5); WBC 11.9 k/uL (3.8-10.6)
--- NOTE | 2019-09-18 18:52 | ED ---
GI Bleed HPI - General Source: patient Mode of arrival: ambulatory Limitations: no limitations <Dinorah Mclean - Last Filed: 09/18/19 18:59> <Grant Hough - Last Filed: 09/18/19 19:28> - General Chief complaint: GI Bleed Stated complaint: rectal bleeding - History of Present Illness Initial comments: 49-year-old male presenting today for chief complaint of right lower quadrant abdominal pain bloody stools patient states is a total of 5 loose bright red stools today. The last vomiting 1 hour prior to presentation. Patient states he is crampy sensation in the right lower quadrant. Patient denies any vomiting her emesis patient denies any anticoagulation use. Patient denies any bleeding diathesis. Patient denies fevers or upper respiratory symptoms. Patient has no additional complaints denies experiencing this the past denies history of hemorrhoids. Patient denies additional complaints upon arrival he appears well and nontoxic in no acute distress he denied any palpitations or cold intolerance. (Dinorah Mclean) - Related Data Home Medications Medication Instructions Recorded Confirmed Ondansetron [Zofran] 4 mg PO Q8HR PRN 08/19/18 08/19/18 Previous Rx's Medication Instructions Recorded Ibuprofen 600 mg PO TID #20 tablet 07/04/18 traMADol HCl [Ultram] 50 mg PO Q6H PRN #15 tab 08/19/18 Allergies Allergy/AdvReac Type Severity Reaction Status Date / Time Opioids - Morphine Analogues AdvReac Nausea & Verified 09/18/19 17:27 Vomiting Review of Systems ROS Other: All systems not noted in ROS Statement are negative. <Dinorah Mclean - Last Filed: 09/18/19 18:59> ROS Other: All systems not noted in ROS Statement are negative. <Grant Hough - Last Filed: 09/18/19 19:28> ROS Statement: Those systems with pertinent positive or pertinent negative responses have been documented in the HPI. Past Medical History Past Medical History: Mitral Valve Prolapse (MVP) Additional Past Medical History / Comment(s): Bronchitis usually every year, kidney stones History of Any Multi-Drug Resistant Organisms: None Reported Past Surgical History: No Surgical Hx Reported, Orthopedic Surgery Additional Past Surgical History / Comment(s): ORAL SURGERY Past Anesthesia/Blood Transfusion Reactions: No Reported Reaction Past Psychological History: No Psychological Hx Reported Past Alcohol Use History: Occasional Past Drug Use History: None Reported - Past Family History Sister(s) Family Medical History: Cancer <Dinorah Mclean - Last Filed: 09/18/19 18:59> General Exam Limitations: no limitations <Dinorah Mclean - Last Filed: 09/18/19 18:59> General appearance: alert, in no apparent distress Head exam: Present: atraumatic, normocephalic, normal inspection Eye exam: Present: normal appearance, PERRL, EOMI. Absent: scleral icterus, conjunctival injection, periorbital swelling ENT exam: Present: normal exam, mucous membranes moist Neck exam: Present: normal inspection. Absent: tenderness, meningismus, lymphadenopathy Respiratory exam: Present: normal lung sounds bilaterally. Absent: respiratory distress, wheezes, rales, rhonchi, stridor Cardiovascular Exam: Present: regular rate, normal rhythm, normal heart sounds. Absent: systolic murmur, diastolic murmur, rubs, gallop, clicks GI/Abdominal exam: Present: soft, normal bowel sounds. Absent: distended, te nderness, guarding, rebound, rigid Extremities exam: Present: normal inspection, full ROM, normal capillary refill. Absent: tenderness, pedal edema, joint swelling, calf tenderness Back exam: Present: normal inspection Neurological exam: Present: alert, oriented X3, CN II-XII intact Psychiatric exam: Present: normal affect, normal mood Skin exam: Present: warm, dry, intact, normal color. Absent: rash <Grant Hough - Last Filed: 09/18/19 19:28> - General Exam Comments Initial Comments: General: The patient is awake and alert, in no distress, and does not appear acutely ill. Eye: Pupils are equal, round and reactive to light, extra-ocular movements are intact. No nystagmus. There is normal conjunctiva bilaterally. No signs of icterus. Ears, nose, mouth and throat: There are moist mucous membranes and no oral lesions. Neck: The neck is supple, there is no tenderness or JVD. Cardiovascular: There is a regular rate and rhythm. No murmur, rub or gallop is appreciated. Respiratory: Lungs are clear to auscultation, respirations are non-labored, breath sounds are equal. No wheezes, stridor, rales, or rhonchi. Gastrointestinal: Soft, non-distended, there is mild to moderate right lower quadrant tenderness to palpation, the remaining abdomen is nontender and abdomen without masses or organomegaly noted. There is no rebound or guarding present. No CVA tenderness. Bowel sounds are unremarkable Rectal: There is light brown stool on digit after digital rectal examination there is no evidence of external hemorrhoids nor palpable internal hemorrhoids. Musculoskeletal: Normal ROM, no tenderness. Strength 5/5. Sensation intact. Radial pulses equal bilaterally 2+. Neurological: A&O x 3. CN II-XII intact grossly, There are no obvious motor or sensory deficits. Coordination appears grossly intact. Speech is normal. Skin: Skin is warm and dry and no rashes or lesions are noted. Psychiatric: Cooperative, appropriate mood & affect, normal judgment. (Dinroah Mclean) Course <Grant Hough - Last Filed: 09/18/19 19:28> Vital Signs 09/18/19 09/18/19 17:21 18:55 Temperature 98.4 F Pulse Rate 86 86 Respiratory 18 16 Rate Blood Pressure 137/95 142/86 O2 Sat by Pulse 100 99 Oximetry - Reevaluation(s) Reevaluation #1: 09/18/19 19:28 Medical records reviewed (Grant Hough) Reevaluation #2: 09/18/19 19:28 Patient informed of results (Grant Hough) Medical Decision Making - Lab Data Result diagrams: 09/18/19 17:51 09/18/19 17:51 <Dinorah Mclean - Last Filed: 09/18/19 18:59> - Lab Data Result diagrams: 09/18/19 17:51 09/18/19 17:51 - Radiology Data Radiology results: report reviewed (CT head and pelvis negative for acute disease), image reviewed <Grant Hough - Last Filed: 09/18/19 19:28> - Medical Decision Making Nontoxic-appearing 49-year-old presenting for rectal bleeding 5 episodes in total. Right lower quadrant pain hemoglobin stable vital signs within except for limits. At shift change at 7 PM I did sign the patient out to attending provider Dr. Hough who will resume care, final disposition of patient. Patient was updated on plan. (Dinorah Mclean) 49 male presented today for evaluation of rectal bleeding, hemoglobin is normal patient can be discharged home with normal vital signs (Grant Hough) - Lab Data Lab Results 09/18/19 09/18/19 09/18/19 Range/Units 17:51 17:51 17:51 WBC 11.9 H (3.8-10.6) k/uL RBC 5.41 (4.30-5.90) m/uL Hgb 16.5 (13.0-17.5) gm/dL Hct 51.7 (39.0-53.0) % MCV 95.6 (80.0-100.0) fL MCH 30.4 (25.0-35.0) pg MCHC 31.8 (31.0-37.0) g/dL RDW 13.4 (11.5-15.5) % Plt Count 247 (150-450) k/uL Neutrophils % 75 % Lymphocytes % 17 % Monocytes % 5 % Eosinophils % 1 % Basophils % 0 % Neutrophils # 9.0 H (1.3-7.7) k/uL Lymphocytes # 2.0 (1.0-4.8) k/uL Monocytes # 0.6 (0-1.0) k/uL Eosinophils # 0.2 (0-0.7) k/uL Basophils # 0.0 (0-0.2) k/uL APTT 25.5 (22.0-30.0) sec Sodium (137-145) mmol/L Potassium (3.5-5.1) mmol/L Chloride (98-107) mmol/L Carbon Dioxide (22-30) mmol/L Anion Gap mmol/L BUN (9-20) mg/dL Creatinine (0.66-1.25) mg/dL Est GFR (CKD-EPI)AfAm (>60 ml/min/1.73 sqM) Est GFR (CKD-EPI)NonAf (>60 ml/min/1.73 sqM) Glucose (74-99) mg/dL Calcium (8.4-10.2) mg/dL Total Bilirubin (0.2-1.3) mg/dL AST (17-59) U/L ALT (4-49) U/L Alkaline Phosphatase (38-126) U/L Troponin I (0.000-0.034) ng/mL Total Protein (6.3-8.2) g/dL Albumin (3.5-5.0) g/dL Stool Occult Blood Positive (Negative) 09/18/19 09/18/19 Range/Units 17:51 17:51 WBC (3.8-10.6) k/uL RBC (4.30-5.90) m/uL Hgb (13.0-17.5) gm/dL Hct (39.0-53.0) % MCV (80.0-100.0) fL MCH (25.0-35.0) pg MCHC (31.0-37.0) g/dL RDW (11.5-15.5) % Plt Count (150-450) k/uL Neutrophils % % Lymphocytes % % Monocytes % % Eosinophils % % Basophils % % Neutrophils # (1.3-7.7) k/uL Lymphocytes # (1.0-4.8) k/uL Monocytes # (0-1.0) k/uL Eosinophils # (0-0.7) k/uL Basophils # (0-0.2) k/uL APTT (22.0-30.0) sec Sodium 139 (137-145) mmol/L Potassium 4.5 (3.5-5.1) mmol/L Chloride 105 (98-107) mmol/L Carbon Dioxide 24 (22-30) mmol/L Anion Gap 10 mmol/L BUN 9 (9-20) mg/dL Creatinine 0.97 (0.66-1.25) mg/dL Est GFR (CKD-EPI)AfAm >90 (>60 ml/min/1.73 sqM) Est GFR (CKD-EPI)NonAf >90 (>60 ml/min/1.73 sqM) Glucose 114 H (74-99) mg/dL Calcium 9.8 (8.4-10.2) mg/dL Total Bilirubin 0.4 (0.2-1.3) mg/dL AST 21 (17-59) U/L ALT 16 (4-49) U/L Alkaline Phosphatase 92 (38-126) U/L Troponin I <0.012 (0.000-0.034) ng/mL Total Protein 7.8 (6.3-8.2) g/dL Albumin 4.8 (3.5-5.0) g/dL Stool Occult Blood (Negative) Disposition <Dinorah Mclean - Last Filed: 09/18/19 18:59> Is patient prescribed a controlled substance at d/c from ED?: No <Grant Hough - Last Filed: 09/18/19 19:28> Clinical Impression: Lower gastrointestinal hemorrhage Disposition: HOME SELF-CARE Condition: Good Instructions (If sedation given, give patient instructions): Gastrointestinal Bleeding (ED) Referrals: Alex Hernandez MD [Primary Care Provider] - 1-2 days
--- NOTE | 2019-09-18 19:22 | CT ---
EXAMINATION TYPE: CT abdomen pelvis w con DATE OF EXAM: 09/18/2019 COMPARISON: 03/06/2014 HISTORY: generalized pain CT DLP: 696.8 mGycm Automated exposure control for dose reduction was used. CONTRAST: Performed with IV Contrast, patient injected with 100 mL of Isovue 300. Images are obtained from the diaphragm to the floor the pelvis with IV contrast. Lung bases are clear. There is no pleural effusion. Heart size is normal. There is no pericardial eff usion. Liver spleen pancreas stomach gallbladder appear normal. Bile ducts are not dilated. There is 1.7 cm rounded left adrenal mass. Kidneys show satisfactory contrast opacification. There is no hydronephrosis. There is probably small bilateral renal calculi up to 3 mm. There is 2 cm cortica l cyst posterior left kidney. Ureters are not dilated. There is no retroperitoneal adenopathy. Bladde r distends smoothly. There are sigmoid diverticula. I see no sign of diverticulitis. Appendix is post erior and appears normal. There is no mesenteric edema. There is no ascites or free air. There is no bowel obstruction. There i s no inguinal hernia. There is 1 cm cortical cyst posterior right kidney. The delayed images show nor mal renal excretion. There is L5 spondylolysis. There is a 5 mm first-degree L5-S1 spondylolisthesis. The bony pelvis is i ntact. IMPRESSION: No sign of acute abdomen and pelvis. Normal appendix. There is L5 spondylolysis unchanged compared to old exam. Nonobstructing small renal calculi. Unchanged. There is some sigmoid diverticulosis withou t diverticulitis.
[2019-09-18 19:46] VITALS: BP 141/96; PULSE 84; RESP 15; TEMP 98.5
== END 2019-09-18 19:45 | disposition home or self-care (01) ==
LOC: EC 17:15
DX: K92.2 Gastrointestinal hemorrhage, unspecified (principal); R10.31 Right lower quadrant pain; Z88.5 Allergy status to narcotic agent
CPT/HCPCS: 36415; 80053; 84484; 85025; 85730; 82272; 74177; 99285; Q9967

== ENCOUNTER 2019-11-05 12:51 | Emergency (ER) | payer OTHER ==
[2019-11-05 13:08] VITALS: BP 169/96; PULSE 92; RESP 18; TEMP 97.8
[2019-11-05] MEDS ORDERED: KETOROLAC 15 MG/ML 1 ML VIAL IM STA (13:28)
[2019-11-05] MEDS ORDERED: ACET/COD 300 MG/30 MG STARTER PACK 6 TAB BTL PO STA (13:28)
[2019-11-05] MEDS ORDERED: LIDOCAINE 5% PATCH TOPICAL STA (13:28)
[2019-11-05] MEDS ORDERED: predniSONE 20 MG TAB PO STA (13:29)
--- NOTE | 2019-11-05 13:33 | ED ---
Back Pain HPI - General Chief Complaint: Back Pain/Injury Stated Complaint: back pain Time Seen by Provider: 11/05/19 13:14 Source: patient Limitations: no limitations - History of Present Illness Initial Comments: 49yo male with history of chronic back pain presenting today for chief complaint of increasing back pain for 2 weeks. He states he has had increased back pain from his baseline for 2 weeks he states he is disjointed after doing strenuous activity. Patient states this been present consistently and increases with coughing sneezing or walking. Patient denies any IV drug use fevers hasn't lost bowel bladder control urinary retention denies any paralysis or weakness of the lower extremities denies a sensation deficits denies any new onset R told dysfunction or history of cancer patient denies any new injuries or specific activities that brought this pain on. Patient states that pain has radiated down the legs before and now does so when he coughs or sneezes otherwise the pain is localized to the low back. Patient denies upper back pain, chest pain or SOB. Patient has no additional complaints. pt states he couldnt get in with Dr. Butterfield until January thus presented to the ER for evaluation. - Related Data Home Medications Medication Instructions Recorded Confirmed Ondansetron [Zofran] 4 mg PO Q8HR PRN 08/19/18 08/19/18 Previous Rx's Medication Instructions Recorded Ibuprofen 600 mg PO TID #20 tablet 07/04/18 traMADol HCl [Ultram] 50 mg PO Q6H PRN #15 tab 08/19/18 Baclofen 10 mg PO BID PRN 3 Days #6 tab 11/05/19 predniSONE 50 mg PO DAILY 3 Days #3 tab 11/05/19 Allergies Allergy/AdvReac Type Severity Reaction Status Date / Time Opioids - Morphine Analogues AdvReac Nausea & Verified 11/05/19 13:08 Vomiting Review of Systems ROS Statement: Those systems with pertinent positive or pertinent negative responses have been documented in the HPI. ROS Other: All systems not noted in ROS Statement are negative. Past Medical History Past Medical History: Mitral Valve Prolapse (MVP) Additional Past Medical History / Comment(s): Bronchitis usually every year, kidney stones History of Any Multi-Drug Resistant Organisms: None Reported Past Surgical History: No Surgical Hx Reported, Orthopedic Surgery Additional Past Surgical History / Comment(s): ORAL SURGERY Past Anesthesia/Blood Transfusion Reactions: No Reported Reaction Past Psychological History: No Psychological Hx Reported Smoking Status: Current every day smoker Past Alcohol Use History: Occasional Past Drug Use History: Marijuana - Past Family History Sister(s) Family Medical History: Cancer General Exam - General Exam Comments Initial Comments: General: The patient is awake and alert, in no distress, and does not appear acutely ill. Eye: +3 mm pupils are equal, round and reactive to light, extra-ocular movements are intact. No nystagmus. There is normal conjunctiva bilaterally. No signs of icterus. Cardiovascular: There is a regular rate and rhythm. No murmur, rub or gallop is appreciated. Respiratory: Lungs are clear to auscultation, respirations are non-labored, breath sounds are equal. No wheezes, stridor, rales, or rhonchi. Gastrointestinal: Soft, non-distended, non-tender abdomen without masses or organomegaly noted. There is no rebound or guarding present. Musculoskeletal: Normal back inspection. Some upper lumbar pain to palpation midline, mild, paraspinal present in lumbar region as well. Normal ROM, no tenderness. Strength 5/5 of the LE b/l. Sensation intact of the LE b/l including saddle region. +2/5 DTR of patellar, achilles Radial and DP pulses equal bilaterally 2+. Can ambulate without difficulty. Neurological: A&O x 3. CN II-XII intact grossly, There are no obvious motor or sensory deficits. Coordination appears grossly intact. Speech is normal. Skin: Skin is warm and dry and no rashes or lesions are noted. Psychiatric: Cooperative, appropriate mood & affect, normal judgment. Limitations: no limitations Course Vital Signs 11/05/19 13:02 Temperature 97.8 F Pulse Rate 92 Respiratory 18 Rate Blood Pressure 169/96 O2 Sat by Pulse 98 Oximetry Medical Decision Making - Medical Decision Making XR (-). Suspected herniated disc. No history provided nor PE findings concerning for cauda equina at this time. Discussed importance of f/u outpatient MRI. Eith return for signs of cauda equina, fevers or increasing pain. Patient was educated on signs of cauda equina and discharged appearing well with steroids he is agreeable to care plan. Disposition Clinical Impression: Low back pain, Radiculopathy Disposition: HOME SELF-CARE Condition: Good Instructions (If sedation given, give patient instructions): Acute Low Back Pain (ED) Additional Instructions: Please use medication as discussed. Please follow-up with family doctor in the next 2 days, orthopedic surgery outpatient. Please return to emergency room if the symptoms increase or worsen or for any other concerns. Prescriptions: Cyclobenzaprine [Flexeril] 10 mg PO TID PRN 3 Days #9 tab PRN Reason: Muscle Spasm predniSONE 50 mg PO DAILY 3 Days #3 tab Is patient prescribed a controlled substance at d/c from ED?: No Referrals: Alex Hernandez MD [Primary Care Provider] - 1-2 days Aleja Bray DO [Doctor of Osteopathic Medicine] - 1-2 days Mauricio Wagner DO [Doctor of Osteopathic Medicine] - 1-2 days Time of Disposition: 15:09
--- NOTE | 2019-11-05 15:08 | XR ---
EXAMINATION TYPE: XR lumbar spine 2 or 3V DATE OF EXAM: 11/05/2019 COMPARISON: None HISTORY: Low back pain TECHNIQUE: Three-view lumbar spine FINDINGS: There 5 lumbar-type vertebral bodies. Pedicles are intact. Disc heights are preserved. Vert ebral body heights are preserved. Vascular calcifications within the aorta. IMPRESSION: 1. Normal three-view lumbar spine
== END 2019-11-05 15:29 | disposition home or self-care (01) ==
LOC: EC 12:51
DX: M54.16 Radiculopathy, lumbar region (principal); F17.200 Nicotine dependence, unspecified, uncomplicated; Z88.5 Allergy status to narcotic agent; X58.XXXA Exposure to other specified factors, initial encounter
CPT/HCPCS: 72100; 96372; 99283; J1885; J7512

== ENCOUNTER 2019-11-10 08:39 | Emergency (ER) | payer OTHER ==
[2019-11-10] MEDS ORDERED: DIAZEPAM 5 MG/ML 2 ML INJ IVP STA (09:04)
[2019-11-10] MEDS ORDERED: traMADol 50 MG TAB PO STA (09:04)
[2019-11-10] MEDS ORDERED: KETOROLAC 15 MG/ML 1 ML VIAL IVP STA (09:05)
--- NOTE | 2019-11-10 09:08 | ED ---
General Adult HPI - General Chief complaint: Back Pain/Injury Stated complaint: back pain Time Seen by Provider: 11/10/19 08:47 Source: patient, EMS, RN notes reviewed, old records reviewed Mode of arrival: EMS Limitations: physical limitation - History of Present Illness Initial comments: 49-year-old male with acute on chronic back pain. Patient has history of chronic back pain, over the past 3 weeks he's had slowly increasing left-sided back pain. He was seen in the emergency department several days ago, prescribed steroids, Tylenol 3 and baclofen. He states symptoms have not improved. He has an appointment with [facility] in approximately one week however the pain is worsening. He denies any injury, no trauma, no fall. He states it is typical of his back periorbital worse. Denies fever or chills. Denies any bowel or bladder dysfunction. Denies numbness or tingling in the legs. No pain in the legs. - Related Data Home Medications Medication Instructions Recorded Confirmed Acetaminophen-Codeine 300-30mg 1 tab PO HS 11/10/19 11/10/19 [Tylenol w/codeine #3] Varenicline [Chantix Continuing 1 mg PO BID 11/10/19 11/10/19 Pack] Varenicline [Chantix Starter Pack] 0.5 mg PO BID 11/10/19 11/10/19 Previous Rx's Medication Instructions Recorded Baclofen 10 mg PO BID PRN 3 Days #6 tab 11/05/19 Acetaminophen-Codeine 300-30mg 1 tab PO Q6H PRN 3 Days #12 tablet 11/10/19 [Tylenol w/codeine #3] Diazepam [Valium] 5 mg PO HS #3 tab 11/10/19 Ibuprofen [Motrin] 600 mg PO Q8HR PRN #24 tab 11/10/19 Allergies Allergy/AdvReac Type Severity Reaction Status Date / Time Opioids - Morphine Analogues AdvReac Nausea & Verified 11/10/19 09:37 Vomiting Review of Systems ROS Statement: Those systems with pertinent positive or pertinent negative responses have been documented in the HPI. ROS Other: All systems not noted in ROS Statement are negative. Past Medical History Past Medical History: Mitral Valve Prolapse (MVP) Additional Past Medical History / Comment(s): Bronchitis usually every year, kidney stones History of Any Multi-Drug Resistant Organisms: None Reported Past Surgical History: Orthopedic Surgery Additional Past Surgical History / Comment(s): ORAL SURGERY and right knee surgery 2019 Past Anesthesia/Blood Transfusion Reactions: No Reported Reaction Past Psychological History: No Psychological Hx Reported Smoking Status: Current every day smoker Past Alcohol Use History: Occasional Past Drug Use History: Marijuana - Past Family History Sister(s) Family Medical History: Cancer General Exam Limitations: physical limitation General appearance: alert, in no apparent distress Head exam: Present: atraumatic, normocephalic Eye exam: Present: normal appearance, PERRL Neck exam: Present: normal inspection. Absent: tenderness, meningismus Respiratory exam: Present: normal lung sounds bilaterally. Absent: respiratory distress, wheezes Cardiovascular Exam: Present: regular rate, normal rhythm GI/Abdominal exam: Present: soft. Absent: distended, tenderness, guarding Extremities exam: Present: normal inspection, normal capillary refill Back exam: Present: paraspinal tenderness (Left lumbar) Neurological exam: Present: alert, oriented X3, CN II-XII intact. Absent: motor sensory deficit Psychiatric exam: Present: normal affect, normal mood Skin exam: Present: warm, dry, intact. Absent: cyanosis, diaphoretic Course Vital Signs 11/10/19 08:43 Temperature 98.2 F Pulse Rate 91 Respiratory 18 Rate Blood Pressure 154/88 O2 Sat by Pulse 98 Oximetry Medical Decision Making - Medical Decision Making 49-year-old male with acute on chronic back pain. No red flag features on history or physical exam. Patient's given Toradol and Valium in the emergency department, has significant improvement in pain and mobility. He has an appoin tment with orthopedic spine within the next one week. He will be prescribed Motrin, and Valium. He will discontinue the Bactrim and prednisone that he is currently taking. Disposition Clinical Impression: Low back pain Disposition: HOME SELF-CARE Condition: Good Instructions (If sedation given, give patient instructions): Acute Low Back Pain (ED) Prescriptions: Ibuprofen [Motrin] 600 mg PO Q8HR PRN #24 tab PRN Reason: Pain Acetaminophen-Codeine 300-30mg [Tylenol w/codeine #3] 1 tab PO Q6H PRN 3 Days #12 tablet PRN Reason: Pain Diazepam [Valium] 5 mg PO HS #3 tab Is patient prescribed a controlled substance at d/c from ED?: No Referrals: Alex Hernandez MD [Primary Care Provider] - 1-2 days Mauricio Wagner DO [Doctor of Osteopathic Medicine] - 1-2 days Time of Disposition: 10:25
[2019-11-10 10:43] VITALS: BP 123/79; PULSE 82; RESP 16; TEMP 97.6
== END 2019-11-10 10:43 | disposition home or self-care (01) ==
LOC: EC 08:39
DX: M54.5 Low back pain (principal); G89.29 Other chronic pain; F17.200 Nicotine dependence, unspecified, uncomplicated; Z88.5 Allergy status to narcotic agent
CPT/HCPCS: 99284; 96374; 96375; J3360; J1885

== ENCOUNTER → 2022-08-15 | Outpatient (CLI) | payer OTHER ==
--- NOTE | 2022-08-15 12:51 | CTL ---
EXAMINATION TYPE: CT Low Dose Lung DATE OF EXAM ORDERED: 08/15/2022 HISTORY: . Lung cancer screening CT DLP: 85.[address] CTDI: 2.5 mGy Automated exposure control for dose reduction was used. SCREENING VISIT: COMPARISON: None TECHNIQUE: Low dose computed tomography scan was performed through the chest at 1 mm thick sections a nd reconstructed images in multiple planes at 1 mm and [address] DIAGNOSTIC QUALITY: Satisfactory FINDINGS: Treviño segmental consolidation anterior segment right upper lobe compatible with atelectasis. 2 mm subpleural nodule axial image 115, is benign. Additional 1 to 2 mm subpleural nodules right lower lobe axial image 160 series 4. There is a 3 mm pulmonary nodule image 225 series 4 left lower lobe. There is a basilar bronchiectasis. Trace of pericardial fluid seen. Lung apices demonstrate mild para septal emphysematous changes. There is no evidence of consolidative pneumonia, pleural effusion or pneumothorax. No pathologic norma opathy. Small hiatal hernia. Heart size is at the upper limits of normal. No significant coronary artery calc ification is seen. Aorta normal caliber with mild atherosclerotic plaque. Osseous structures are intact. A trace of gynecomastia incidentally noted. Multilevel degenerative di sc disease and Schmorl's nodes. Partially included in the [id number] is an apparent left adrenal n odule measuring 1.5 cm and containing a punctate area of fat measuring of -10 Hounsfield units likely representing a benign adenoma. Retrospectively present on the CT scan of 08/22/2009. IMPRESSION: 1. Multiple sub-5 mm nodules have benign appearance. Recommend 12 month screening according to Fleisc hner guidelines. 2. Mild cylindrical basilar bronchiectasis CT LUNG RAD AND CT CHEST RECOMMENDATION: Lung-Rad 2 Benign Appearance or Behavior: Continue annual sc reening with LDCT in 12 months.
== END | disposition home or self-care (01) ==
LOC: RADCTMAIN 11:49
PROVIDERS: ATTEND Family Medicine
DX: Z12.2 Encounter for screening for malignant neoplasm of respiratory organs (principal); J47.9 Bronchiectasis, uncomplicated; R91.8 Other nonspecific abnormal finding of lung field; F17.210 Nicotine dependence, cigarettes, uncomplicated
CPT/HCPCS: 71271

== ENCOUNTER 2022-08-19 12:27 | Day surgery (SDC) | payer OTHER ==
[2022-08-12 15:01] VITALS: BMI 24.4
[~2022-08-19 12:27] MED LIST changes: -LIDOCAINE 1% 20 ML VIAL (10MG/ML) FOR IV START INTRADERMA PRN; -ONDANSETRON 4 MG/2 ML VIAL IVP ONE; -fentaNYL (PF) 50 MCG/ML 2 ML AMP IVP PRN
[2022-08-19 12:49] VITALS: TEMP 98.3
[2022-08-19] MEDS ORDERED: PROPOFOL 10 MG/ML 20 ML VIAL IV ONE (14:08)
[2022-08-19] MEDS ORDERED: LIDOCAINE 2% INJ 20 MG/ML (2 ML VIAL) ONE (14:08)
--- NOTE | 2022-08-19 14:13 | P.GSHP ---
History of Present Illness H&P Date: 08/19/22 Chief Complaint: Colitis This a 52-year-old male with history of colitis. Patient presents today for colonoscopy. His complaints of diarrhea and pain. He states she's had some mild rectal bleeding. Past Medical History Past Medical History: Hypertension, Mitral Valve Prolapse (MVP) Additional Past Medical History / Comment(s): abdominal pain and bleeding with stools for months, Bronchitis usually every year, kidney stones History of Any Multi-Drug Resistant Organisms: None Reported Past Surgical History: Orthopedic Surgery Additional Past Surgical History / Comment(s): ORAL SURGERY and right knee surgery 2019 Past Anesthesia/Blood Transfusion Reactions: No Reported Reaction Smoking Status: Current every day smoker - Past Family History Sister(s) Family Medical History: Cancer Additional Family Medical History / Comment(s): 2 sisters with female and breast CA Mother Family Medical History: Cancer Additional Family Medical History / Comment(s): breast Medications and Allergies Home Medications Medication Instructions Recorded Confirmed Type Ibuprofen [Motrin] 600 mg PO Q8HR PRN #24 tab 11/10/19 08/19/22 Rx Budesonide/Formoterol Fumarate 2 puff INHALATION TID 08/12/22 08/19/22 History [Symbicort 160-4.5 Mcg Inhaler] Omeprazole 40 mg PO HS 08/12/22 08/19/22 History atenoloL [Tenormin] 50 mg PO BID 08/12/22 08/19/22 History Allergies Allergy/AdvReac Type Severity Reaction Status Date / Time hydrocodone AdvReac seizure Verified 08/19/22 12:42 Surgical - Exam Vital Signs Temp Pulse Resp BP Pulse Ox 98.3 F 109 H 18 150/84 98 08/19/22 12:45 08/19/22 12:45 08/19/22 12:45 08/19/22 12:45 08/19/22 12:45 - General well developed, well nourished, no distress - Eyes PERRL - ENT normal pinna, normal nares - Neck no masses - Respiratory normal expansion - Cardiovascular Rhythm: regular - Abdomen Abdomen: soft, non tender Assessment and Plan Assessment: History of colitis, diarrhea, abdominal pain and bleeding. We'll perform colonoscopy.
--- NOTE | 2022-08-19 14:31 | P.OP ---
Date of Procedure: 08/19/22 Preoperative Diagnosis: Colitis, rectal bleeding, abdominal pain Postoperative Diagnosis: Rectal polyp Sigmoid colon polyp Diverticulosis Procedure(s) Performed: Colonoscopy Anesthesia: MAC Surgeon: Jasbir Mina Pathology: other (Sigmoid colon polyp, sigmoid biopsied, rectal polyp.) Condition: stable Disposition: PACU Description of Procedure: The patient's placed on the endoscopy table in the lateral position. He received IV sedation. Digital rectal exam was performed. This revealed a few hemorrhoids. The colon scope was then placed patient anus and passed throughout the entire colon. Ileocecal valve was visualized. The cecum, ascending and transverse colon appeared normal. In the descending colon was a few scattered diverticula. The scope was then brought back and sigmoid colon there was a peduncular polyp seen was removed with the snare. The mucosa was biopsied in separate portion of the; due to possible inflammation. Scope summer back the rectum another polyp seen was removed the cold forcep. Scope withdrawn for patient.
[2022-08-19 15:03] VITALS: BP 132/87; PULSE 99; RESP 16
== END 2022-08-19 15:27 | disposition home or self-care (01) ==
LOC: ORWHC2ENDO 12:27
PROVIDERS: ATTEND Surgery
DX: D12.5 Benign neoplasm of sigmoid colon (principal); K52.9 Noninfective gastroenteritis and colitis, unspecified; K62.1 Rectal polyp; K57.30 Diverticulosis of large intestine without perforation or abscess without bleeding; I10 Essential (primary) hypertension; I34.1 Nonrheumatic mitral (valve) prolapse; F17.200 Nicotine dependence, unspecified, uncomplicated; Z80.3 Family history of malignant neoplasm of breast; Z79.51 Long term (current) use of inhaled steroids; Z87.442 Personal history of urinary calculi; Z88.5 Allergy status to narcotic agent; Z79.899 Other long term (current) drug therapy
CPT/HCPCS: 45380; 88305; 45385; J2704; J2001

== ENCOUNTER 2022-12-04 21:39 | Observation (INO) | payer OTHER ==
[2022-12-04] MEDS ORDERED: SODIUM CHLORIDE 0.9% 1,000 ML IV STA (21:57)
--- NOTE | 2022-12-04 22:00 | ED ---
General Adult HPI - General Chief complaint: Chest Pain Stated complaint: Chest Pain Time Seen by Provider: 12/04/22 21:43 Source: patient, RN notes reviewed, old records reviewed Mode of arrival: ambulatory Limitations: no limitations - History of Present Illness Initial comments: 52-year-old male presenting for evaluation of chest discomfort and palpitations. Symptoms has been ongoing for the past 3 days. He states that his heart is been racing. He said of discomfort in his left upper chest and left shoulder associated with palpitations. Patient denies vomiting or diaphoresis. Denies prior CAD history. States he has a mitral valve prolapse and has had some palpitations in the past. - Related Data Home Medications Medication Instructions Recorded Confirmed Budesonide/Formoterol Fumarate 2 puff INHALATION RT-BID 08/12/22 12/04/22 [Symbicort 160-4.5 Mcg Inhaler] Omeprazole 40 mg PO HS 08/12/22 12/04/22 atenoloL [Tenormin] 50 mg PO BID 08/12/22 12/04/22 Escitalopram [Lexapro] 20 mg PO DIRECTED 12/04/22 12/04/22 Losartan-Hctz 50-12.5 mg [Hyzaar 1 tab PO DAILY 12/04/22 12/04/22 50-12.5] Nicotine 21Mg/24Hr Patch [Habitrol] 1 patch TRANSDERM DAILY 12/04/22 12/04/22 Sildenafil Citrate 50 mg PO DIRECTED PRN 12/04/22 12/04/22 Tiotropium 2.5 Mcg/Puff [Spiriva 1 puff INHALATION RT-DAILY 12/04/22 12/04/22 Respimat 2.5 Mcg] Allergies Allergy/AdvReac Type Severity Reaction Status Date / Time pineapple Allergy Unknown Verified 12/04/22 23:11 hydrocodone AdvReac seizure Verified 12/04/22 23:11 Review of Systems ROS Statement: Those systems with pertinent positive or pertinent negative responses have been documented in the HPI. ROS Other: All systems not noted in ROS Statement are negative. Past Medical History Past Medical History: Mitral Valve Prolapse (MVP) Additional Past Medical History / Comment(s): Bronchitis usually every year, kidney stones History of Any Multi-Drug Resistant Organisms: None Reported Past Surgical History: Orthopedic Surgery Additional Past Surgical History / Comment(s): ORAL SURGERY and right knee surgery 2019 Past Anesthesia/Blood Transfusion Reactions: No Reported Reaction Past Psychological History: No Psychological Hx Reported Smoking Status: Current every day smoker Past Alcohol Use History: Rare Past Drug Use History: Marijuana - Past Family History Sister(s) Family Medical History: Cancer Additional Family Medical History / Comment(s): 2 sisters with female and breast CA Mother Family Medical History: Cancer Additional Family Medical History / Comment(s): breast General Exam Limitations: no limitations General appearance: alert, in no apparent distress Head exam: Present: atraumatic, normocephalic Eye exam: Present: normal appearance, PERRL ENT exam: Present: mucous membranes dry Neck exam: Present: normal inspection. Absent: tenderness, meningismus Respiratory exam: Present: normal lung sounds bilaterally. Absent: respiratory distress, wheezes Cardiovascular Exam: Present: normal rhythm, tachycardia GI/Abdominal exam: Present: soft. Absent: distended, tenderness, guarding Extremities exam: Present: normal inspection, normal capillary refill. Absent: pedal edema, calf tenderness Neurological exam: Present: alert, oriented X3, CN II-XII intact. Absent: motor sensory deficit Psychiatric exam: Present: normal affect, normal mood Skin exam: Present: warm, dry, intact. Absent: cyanosis, diaphoretic Course Vital Signs 12/04/22 12/04/22 12/04/22 21:40 22:15 22:30 Temperature 98.1 F Pulse Rate 122 H 116 H 102 H Respiratory 18 18 20 Rate Blood Pressure 154/97 141/95 140/102 O2 Sat by Pulse 99 99 99 Oximetry 12/04/22 12/04/22 23:00 23:31 Temperature Pulse Rate 94 96 Respiratory 20 22 Rate Blood Pressure 146/104 140/91 O2 Sat by Pulse 100 100 Oximetry Medical Decision Making - Medical Decision Making Was pt. sent in by a medical professional or institution (, PA, INVESTMENT BANKING MANAGER, urgent care, hospital, or detention...) When possible be specific @ -No Did you speak to anyone other than the patient for history (EMS, parent, family, police, friend...)? What history was obtained from this source @ -No Did you review nursing and triage notes (agree or disagree)? Why? @ -I reviewed and agree with nursing and triage notes Were old charts reviewed (outside hosp., previous admission, EMS record, old EKG, old radiological studies, urgent care reports/EKG's, detention records)? Report findings @ -No old charts were reviewed Differential Diagnosis (chest pain, altered mental status, abdominal pain women, abdominal pain men, vaginal bleeding, weakness, fever, dyspnea, syncope, headache, dizziness, GI bleed, back pain, seizure, CVA, palpatations, mental health, musculoskeletal)? @ Differential Chest Pain: Stable Angina, Unstable Angina, STEMI, NSTEMI Aortic Dissection, Pneumothorax, Musculoskeletal, Esophageal Spasm GERD, Cholecystitis, Pancreatitis, Zoster, this is not meant to be an all-inclusive list. EKG interpreted by me (3pts min.). @EKG: Sinus tachycardia rate of 118, IN interval 159, castration 89, QTC 371, ST segment depression in the lateral precordial leads as well as lead 1 X-rays interpreted by me (1pt min.). @ Chest x-ray negative for acute cardio pulmonary findings CT interpreted by me (1pt min.). @ -None done U/S interpreted by me (1pt. min.). @ -None done What testing was considered but not performed or refused? (CT, X-rays, U/S, labs)? Why? @ -None What meds were considered but not given or refused? Why? @ -None Did you discuss the management of the patient with other professionals (professionals i.e. , PA, INVESTMENT BANKING MANAGER, lab, RT, psych nurse, rn social work, front elevator operator, teacher, co founder and chief strategy officer, case monitor)? Give summary @ -[Dr. Hernandez Was smoking cessation discussed for >3mins.? @ -No Was critical care preformed (if so, how long)? @ -No Were there social determinants of health that impacted care today? How? (Homelessness, low income, unemployed, alcoholism, drug addiction, transportation, low edu. Level, literacy, decrease access to med. care, [facility], rehab)? @ -No Was there de-escalation of care discussed even if they declined (Discuss DNR or withdrawal of care, Hospice)? DNR status @ -No What co-morbidities impacted this encounter? (DM, HTN, Smoking, COPD, CAD, Cancer, CVA, ARF, Chemo, Hep., AIDS, mental health diagnosis, sleep apnea, morbid obesity)? @ COPD Was patient admitted / discharged? Hospital course, mention meds given and route, prescriptions, significant lab abnormalities, going to OR and other pertinent info. @ -[52-year-old male with palpitations and chest pain. EKG is sinus tachycardia without ST segment elevation but shows ST segment depression in the lateral recorded a leads. Patient's chest x-ray is clear. Normal CBC, normal CMP, negative d-dimer, negative initial troponin. He will be kept in observation for serial cardiac enzymes, telemetry, cardiology consultation. Undiagnosed new problem with uncertain prognosis? @ -No Drug Therapy requiring intensive monitoring for toxicity (Heparin, Nitro, Insulin, Cardizem)? @ -No Were any procedures done? @ -No Diagnosis/symptom? @ -[Chest pain, palpitations Acute, or Chronic, or Acute on Chronic? @ -Acute Uncomplicated (without systemic symptoms) or Complicated (systemic symptoms)? @ -[Complicated Side effects of treatment? @ -No Exacerbation, Progression, or Severe Exacerbation? @ -No Poses a threat to life or bodily function? How? (Chest pain, USA, MD, pneumonia, PE, COPD, DKA, ARF, appy, cholecystitis, CVA, Diverticulitis, Homicidal, Suici mignon, threat to staff... and all critical care pts) @ -[Yes, chest pain, arrhythmia - Lab Data Result diagrams: 12/04/22 22:15 12/04/22 22:15 Lab Results 12/04/22 12/04/22 12/04/22 Range/Units 22:15 22:15 22:15 WBC 9.9 (3.8-10.6) k/uL RBC 5.42 (4.30-5.90) m/uL Hgb 16.3 (13.0-17.5) gm/dL Hct 47.8 (39.0-53.0) % MCV 88.1 (80.0-100.0) fL MCH 30.1 (25.0-35.0) pg MCHC 34.2 (31.0-37.0) g/dL RDW 12.7 (11.5-15.5) % Plt Count 298 (150-450) k/uL MPV 6.7 Neutrophils % 61 % Lymphocytes % 29 % Monocytes % 6 % Eosinophils % 1 % Basophils % 1 % Neutrophils # 6.0 (1.3-7.7) k/uL Lymphocytes # 2.9 (1.0-4.8) k/uL Monocytes # 0.6 (0-1.0) k/uL Eosinophils # 0.1 (0-0.7) k/uL Basophils # 0.1 (0-0.2) k/uL PT 9.9 L (10.0-12.5) sec INR 0.9 (<1.2) APTT 26.9 (22.0-30.0) sec D-Dimer 0.48 (<0.60) mg/L FEU Sodium 139 (137-145) mmol/L Potassium 3.7 (3.5-5.1) mmol/L Chloride 105 (98-107) mmol/L Carbon Dioxide 20 L (22-30) mmol/L Anion Gap 14 mmol/L BUN 10 (9-20) mg/dL Creatinine 0.87 (0.66-1.25) mg/dL Est GFR (CKD-EPI)AfAm >90 (>60 ml/min/1.73 sqM) Est GFR (CKD-EPI)NonAf >90 (>60 ml/min/1.73 sqM) Glucose 120 H (74-99) mg/dL Calcium 9.9 (8.4-10.2) mg/dL Magnesium 1.9 (1.6-2.3) mg/dL Total Bilirubin 0.4 (0.2-1.3) mg/dL AST 23 (17-59) U/L Alkaline Phosphatase 79 (38-126) U/L Troponin I (0.000-0.034) ng/mL NT-Pro-B Natriuret Pep <20 pg/mL Total Protein 7.5 (6.3-8.2) g/dL Albumin 4.5 (3.5-5.0) g/dL 12/04/22 Range/Units 22:15 WBC (3.8-10.6) k/uL RBC (4.30-5.90) m/uL Hgb (13.0-17.5) gm/dL Hct (39.0-53.0) % MCV (80.0-100.0) fL MCH (25.0-35.0) pg MCHC (31.0-37.0) g/dL RDW (11.5-15.5) % Plt Count (150-450) k/uL MPV Neutrophils % % Lymphocytes % % Monocytes % % Eosinophils % % Basophils % % Neutrophils # (1.3-7.7) k/uL Lymphocytes # (1.0-4.8) k/uL Monocytes # (0-1.0) k/uL Eosinophils # (0-0.7) k/uL Basophils # (0-0.2) k/uL PT (10.0-12.5) sec INR (<1.2) APTT (22.0-30.0) sec D-Dimer (<0.60) mg/L FEU Sodium (137-145) mmol/L Potassium (3.5-5.1) mmol/L Chloride (98-107) mmol/L Carbon Dioxide (22-30) mmol/L Anion Gap mmol/L BUN (9-20) mg/dL Creatinine (0.66-1.25) mg/dL Est GFR (CKD-EPI)AfAm (>60 ml/min/1.73 sqM) Est GFR (CKD-EPI)NonAf (>60 ml/min/1.73 sqM) Glucose (74-99) mg/dL Calcium (8.4-10.2) mg/dL Magnesium (1.6-2.3) mg/dL Total Bilirubin (0.2-1.3) mg/dL AST (17-59) U/L Alkaline Phosphatase (38-126) U/L Troponin I <0.012 (0.000-0.034) ng/mL NT-Pro-B Natriuret Pep pg/mL Total Protein (6.3-8.2) g/dL Albumin (3.5-5.0) g/dL Disposition Clinical Impression: Chest pain Disposition: ADMITTED IP TO THIS HOSP Condition: Stable Is patient prescribed a controlled substance at d/c from ED?: No Referrals: Alex Hernandez MD [Primary Care Provider] - 1-2 days Time of Disposition: 23:45
[2022-12-04 22:41] LABS: Basophils # (A) 0.1 k/uL (0-0.2); Basophils % (A) 1 %; Eosinophils # (A) 0.1 k/uL (0-0.7); Eosinophils % (A) 1 %; HCT 47.8 % (39.0-53.0); HGB 16.3 gm/dL (13.0-17.5); Lymphocytes # (A) 2.9 k/uL (1.0-4.8); Lymphocytes % (A) 29 %; MCH 30.1 pg (25.0-35.0); MCHC 34.2 g/dL (31.0-37.0); MCV 88.1 fL (80.0-100.0); Mean Platelet Volume 6.7; Monocytes # (A) 0.6 k/uL (0-1.0); Monocytes % (A) 6 %; Neutrophils % (A) 61 %; Platelet Count 298 k/uL (150-450); RBC 5.42 m/uL (4.30-5.90); RDW 12.7 % (11.5-15.5); WBC 9.9 k/uL (3.8-10.6)
--- NOTE | 2022-12-04 22:52 | XR ---
EXAM: XR Chest, 2 Views CLINICAL HISTORY: ITS.REASON XR Reason: Chest Pain TECHNIQUE: Frontal and lateral views of the chest. COMPARISON: No relevant prior studies available. FINDINGS: Lungs: Unremarkable. No consolidation. Pleural space: Unremarkable. No pneumothorax. Heart: Unremarkable. No cardiomegaly. Mediastinum: Unremarkable. Bones/joints: Unremarkable. IMPRESSION: Normal chest x-rays.
[2022-12-04 22:54] LABS: INR 0.9 (<1.2); Partial Thromboplastin Time 26.9 sec (22.0-30.0); Prothrombin Time 9.9 sec (10.0-12.5)
[2022-12-04 23:18] LABS: NT-Pro-B-Type Natriuretic Pept <20 pg/mL
[2022-12-04 23:33] LABS: AST 23 U/L (17-59); African American GFR (CKD) >90 (>60 ml/min/1.73 sqM); Albumin 4.5 g/dL (3.5-5.0); Alkaline Phosphatase 79 U/L (38-126); Anion Gap 14 mmol/L; Blood Urea Nitrogen 10 mg/dL (9-20); Calcium 9.9 mg/dL (8.4-10.2); Carbon Dioxide 20 mmol/L (22-30); Chloride 105 mmol/L (98-107); Glucose 120 mg/dL (74-99); Magnesium 1.9 mg/dL (1.6-2.3); Non-African American GFR(CKD) >90 (>60 ml/min/1.73 sqM); Potassium 3.7 mmol/L (3.5-5.1); Sodium 139 mmol/L (137-145); Total Bilirubin 0.4 mg/dL (0.2-1.3); Total Protein 7.5 g/dL (6.3-8.2)
[2022-12-04] MEDS ORDERED: ONDANSETRON 4 MG/2 ML VIAL IVP PRN (23:42)
[2022-12-04] MEDS ORDERED: NALOXONE 0.4 MG/ML 1 ML VIAL IV PRN (23:42)
[2022-12-04] MEDS ORDERED: ACETAMINOPHEN TAB 325 MG TAB PO PRN (23:42)
[2022-12-04] MEDS ORDERED: ASPIRIN 325 MG TAB PO STA (23:44)
[2022-12-04] MEDS: SODIUM CHLORIDE 0.9% 1,000 ML IV SCH (23:49)
[2022-12-04 23:51] LABS: ALT 27 U/L (4-49)
[2022-12-05] MEDS ORDERED: DOBUTamine DRIP for NUC MED 500 MG/250 ML BAG IV ONE (08:00)
[2022-12-05] MEDS ORDERED: atenoloL 50 MG TAB PO SCH (09:15)
[2022-12-05] MEDS ORDERED: DOBUTamine DRIP for NUC MED 500 MG in DEXTROSE/WATER 1 250ML.BAG IV PRN (09:20)
[2022-12-05] MEDS: LOSARTAN-HCTZ 50-12.5 MG 1 EACH TAB PO SCH (09:38)
[2022-12-05] MEDS: NICOTINE 21MG/24HR PATCH TRANSDERM SCH (10:30)
--- NOTE | 2022-12-05 10:57 | P.CRDCN ---
History of Present Illness History of present illness: HISTORY OF PRESENT ILLNESS: This is a 52-year-old male with a past medical history significant for hypertension and nicotine dependence. Patient does not follow with a strapping machine tender. We have been asked to see the patient in consultation for chest pain. Patient examined at the bedside. Patient initially presented to the hospital with a chief complaint of palpitations. Patient states he has been having palpitations over the past few days. He states that he has a pulse ox machine at home and has been checking his heart rate and it will jump into the 130s while he is just sitting on the couch. He reports when he is having palpitations he begins to have chest pressure. He also reports feeling short of breath and nauseated. Denies having any vomiting. He is a current cigarette smoker and smokes 4 cigarettes a day. He also reports marijuana use (smoking and edibles). Denies any alcohol use. He reports a family history of coronary artery disease and states his sister from a combination of leukemia and a heart attack. * EKG reveals sinus tachycardia with nonspecific ST-T wave changes. No signs of acute ischemia. * Chest xray negative for acute process * Current home cardiac medications include atenolol 50 mg twice a day and losartan hydrochlorothiazide 50 mg12.5 mg daily * Most recent echocardiogram obtained in 2016 revealed ejection fraction 50-55%, trace MR, and trace TR * Patient underwent stress echocardiogram in 2016 which was negative for stress- induced ischemia REVIEW OF SYSTEMS: At the time of my exam: CONSTITUTIONAL: Denies fever or chills. HEENT: Denies blurred vision, vision changes, or eye pain. Denies hemoptysis CARDIOVASCULAR: Denies chest pain. Denies orthopnea. Denies PND. Denies palpitations RESPIRATORY: Denies shortness of breath. GASTROINTESTINAL: Denies abdominal pain. Denies nausea or vomiting. HEMATOLOGIC: Denies bleeding disorders. GENITOURINARY: Denies any blood in urine. SKIN: Denies pruitis. Denies rash. PHYSICAL EXAM: VITAL SIGNS: Reviewed. GENERAL: Well-developed in no acute distress. HEENT: Head is normocephalic. Pupils are equal, round. Sclerae anicteric. Mucous membranes of the mouth are moist. Neck supple. No JVD or thyromegaly LUNGS: Respirations even and unlabored. Lungs essentially clear to auscultation bilaterally. HEART: Regular rate and rhythm. S1 and S2 heard. ABDOMEN: Soft. Nondistended. Nontender. EXTREMITIES: Normal range of motion. No clubbing or cyanosis. Peripheral pulses intact. No lower extremity edema NEUROLOGIC: Awake and alert. Oriented x 3. ASSESSMENT: Palpitations Chest pain, troponins negative 3 Hypertension Nicotine dependence Marijuana use PLAN: An acute coronary event has been ruled out Resume home cardiac medications Obtain 2-D echo to assess cardiac structure and function Patient to undergo dobutamine stress test today If stress test is negative and echocardiogram does not reveal any significant abnormalities, the patient may be discharged home today from a cardiac standpoint Smoking cessation recommended Abstinence from marijuana use encouraged Further recommendations by inpatient course Nurse practitioner note has been reviewed by physician. Signing provider agrees with the documented findings, assessment, and plan of care. Past Medical History Past Medical History: Mitral Valve Prolapse (MVP) Additional Past Medical History / Comment(s): Bronchitis usually every year, kidney stones History of Any Multi-Drug Resistant Organisms: None Reported Past Surgical History: Orthopedic Surgery Additional Past Surgical History / Comment(s): ORAL SURGERY and right knee surgery 2019 Past Anesthesia/Blood Transfusion Reactions: No Reported Reaction Past Psychological History: No Psychological Hx Reported Smoking Status: Current every day smoker Past Alcohol Use History: Rare Past Drug Use History: Marijuana - Past Family History Sister(s) Family Medical History: Cancer Additional Family Medical History / Comment(s): 2 sisters with female and breast CA Mother Family Medical History: Cancer Additional Family Medical History / Comment(s): breast Medications and Allergies Home Medications Medication Instructions Recorded Confirmed Type Budesonide/Formoterol Fumarate 2 puff INHALATION RT-BID 08/12/22 12/04/22 History [Symbicort 160-4.5 Mcg Inhaler] Omeprazole 40 mg PO HS 08/12/22 12/04/22 History atenoloL [Tenormin] 50 mg PO BID 08/12/22 12/04/22 History Escitalopram [Lexapro] 20 mg PO DIRECTED 12/04/22 12/04/22 History Losartan-Hctz 50-12.5 mg [Hyzaar 1 tab PO DAILY 12/04/22 12/04/22 History 50-12.5] Nicotine 21Mg/24Hr Patch [Habitrol] 1 patch TRANSDERM DAILY 12/04/22 12/04/22 History Sildenafil Citrate 50 mg PO DIRECTED PRN 12/04/22 12/04/22 History Tiotropium 2.5 Mcg/Puff [Spiriva 1 puff INHALATION RT-DAILY 12/04/22 12/04/22 History Respimat 2.5 Mcg] Allergies Allergy/AdvReac Type Severity Reaction Status Date / Time pineapple Allergy Unknown Verified 12/04/22 23:11 hydrocodone AdvReac seizure Verified 12/04/22 23:11 Physical Exam Vitals: Vital Signs Temp Pulse Resp BP Pulse Ox 12/05/22 10:03 88 17 139/81 98 12/05/22 09:34 88 18 134/91 97 12/05/22 08:57 98.1 F 92 17 136/88 99 12/05/22 07:10 73 10 L 103/74 98 12/05/22 02:00 83 18 129/89 99 12/05/22 01:13 96 20 148/94 98 12/04/22 23:31 96 22 140/91 100 12/04/22 23:00 94 20 146/104 100 12/04/22 22:30 102 H 20 140/102 99 12/04/22 22:15 116 H 18 141/95 99 12/04/22 21:40 98.1 F 122 H 18 154/97 99 Intake and Output 12/04/22 12/05/22 12/05/22 22:59 06:59 14:59 Other: Weight 77.111 kg Results 12/04/22 22:15 12/04/22 22:15 Cardiac Enzymes 12/04/22 12/04/22 12/05/22 Range/Units 22:15 22:15 00:45 AST 23 (17-59) U/L Troponin I <0.012 <0.012 (0.000-0.034) ng/mL 12/05/22 Range/Units 04:35 AST (17-59) U/L Troponin I <0.012 (0.000-0.034) ng/mL Coagulation 12/04/22 Range/Units 22:15 PT 9.9 L (10.0-12.5) sec APTT 26.9 (22.0-30.0) sec CBC 12/04/22 Range/Units 22:15 WBC 9.9 (3.8-10.6) k/uL RBC 5.42 (4.30-5.90) m/uL Hgb 16.3 (13.0-17.5) gm/dL Hct 47.8 (39.0-53.0) % Plt Count 298 (150-450) k/uL Comprehensive Metabolic Panel 12/04/22 Range/Units 22:15 Sodium 139 (137-145) mmol/L Potassium 3.7 (3.5-5.1) mmol/L Chloride 105 (98-107) mmol/L Carbon Dioxide 20 L (22-30) mmol/L BUN 10 (9-20) mg/dL Creatinine 0.87 (0.66-1.25) mg/dL Glucose 120 H (74-99) mg/dL Calcium 9.9 (8.4-10.2) mg/dL AST 23 (17-59) U/L ALT 27 (4-49) U/L Alkaline Phosphatase 79 (38-126) U/L Total Protein 7.5 (6.3-8.2) g/dL Albumin 4.5 (3.5-5.0) g/dL Current Medications Generic Name Dose Route Start Last Admin Trade Name Freq PRN Reason Stop Dose Admin Acetaminophen 650 mg 12/04/22 23:42 12/05/22 08:58 Acetaminophen Tab 325 Mg Tab PO 650 mg Q6HR PRN Administration Mild Pain or Fever > 100.5 Atenolol 50 mg 12/05/22 21:00 Atenolol 50 Mg Tab PO BID JENNIE HCTZ/Losartan Potassium 1 each 12/05/22 09:15 12/05/22 09:38 Losartan-Hctz 50-12.5 Mg 1 Each Tab PO 1 each DAILY JENNIE Administration Sodium Chloride 1,000 mls @ 75 mls/hr 12/04/22 23:45 12/04/22 23:49 Saline 0.9% IV 75 mls/hr .[id number] JENNIE Administration Dobutamine HCl/Dextrose 500 mg 250 mls @ 23.133 mls/hr 12/05/22 09:20 / IV Solution IV 12/05/22 13:20 .[id number] PRN Per Protocol Protocol 10 MCG/KG/MIN Naloxone HCl 0.2 mg 12/04/22 23:42 Naloxone 0.4 Mg/Ml 1 Ml Vial IV Q2M PRN Opioid Reversal Nicotine 1 patch 12/05/22 10:30 12/05/22 10:30 Nicotine 21mg/24hr Patch TRANSDERM 1 patch DAILY JENNIE Administration Ondansetron HCl 4 mg 12/04/22 23:42 Ondansetron 4 Mg/2 Ml Vial IVP Q8HR PRN Nausea And Vomiting Intake and Output 12/04/22 12/05/22 12/05/22 22:59 06:59 14:59 Other: Weight 77.111 kg 12/04/22 22:15 12/04/22 22:15
--- NOTE | 2022-12-05 12:43 | CA ---
Dobutamine Stress Echocardiogram Report Akil Wilson Age: 52 Gender: M : 1970 Exam Date: 12/05/2022 11:18 Exam Location: [facility] Ordering Physician: Donna Doan Referring Physician: [id number] Artist: Preethi Germain RDCS Technologist: Ht (in): 71 Wt (lb): 170 Procedure CPT: Indication: CP ICD-9 Codes: Rhythm: Patient History: CP, AYAD, PALP, HTN, FAMILY HX, TOB (.5PPD X 35YRS), COPD Cardiac Medications: SEE CHART Medications in past 24 hours: Contrast: Total Dose (mL): Stress Results Protocol: Dobutamine Peak Dose (???g/kg/min): 40 Duration (min:sec): Atropine:(mg) None Target HR: 145 Double Product: [id number] Resting HR: 75 Resting BP: 140 / 84 Peak HR: 138 Peak BP: 157 / 66 Max Predicted HR: 170 81 % Max Predicted HR Stress Summary: BP Response: Reason for Termination: PHYSICIAN TERMINATED EXAM Cardiac Symptoms: ECG Analysis Resting EKG: Normal sinus rhythm, normal ECG, heart rate 81 bpm Stress EKG: At peak heart rate of 134, which is around 81% of aged. Maximum heart rate, we noticed 1.[address] depressions in inferolateral leads. Arrhythmia: Liver occasional PVCs during the study. There were no sustained arrhythmias. Echo Analysis Base Echo Analysis: Low Echo Anaylsis: Peak Echo Analysis: Recovery Echo: MEASUREMENTS (Male/Female) Normal Values CONCLUSIONS Patient experienced chest pressure, palpitations, lightheadedness with dobutamine infusion and could not complete the study. He also had drop in his blood pressure during the study protocol due to which the study was terminated prematurely. Patient did not achieve 85% of age predicted maximum heart rate With 81% of maximum heart rate, there was 1.[address] depressions in inferolateral leads. There is also a hint of possible inferior wall hypokinesia on echocardiogram. Overall Abnormal dobutamine stress echocardiogram. Abnormal clinical response to dobutamine infusion Ischemic ECG response and Echocardiographic response to dobutamine infusion Dr Rogers Harden (Electronically Signed) Final Date: 05 December 2022 12:42
[2022-12-05] MEDS: SODIUM CHLORIDE 0.9% 1,000 ML IV SCH (12:44)
[2022-12-05] MEDS ORDERED: NITROGLYCERIN SL TABS 0.4 MG TAB SUBLINGUAL PRN (12:46)
[2022-12-05] MEDS ORDERED: ALPRAZolam 0.25 MG TAB PO PRN (12:46)
[2022-12-05] MEDS ORDERED: ALPRAZolam 0.5 MG TAB PO PRN (12:46)
--- NOTE | 2022-12-05 12:47 | CA ---
Transthoracic Echo Report Name: Akil Wilson Age: 52 Gender: M : 1970 Exam Date: 12/05/2022 11:48 Exam Location: [facility] Ht (in): 71 Wt (lb): 170 Ordering Physician: Donna Doan Attending/Referring Phys: [id number], Franki [employer] Agent Preethi Germain RDCS Procedure CPT: Indications: CP Cardiac Hx: Technical Quality: Fair Contrast 1: Total Dose (mL): Contrast 2: Total Dose (mL): MEASUREMENTS (Male / Female) Normal Values 2D ECHO LV Diastolic Diameter PLAX 4.5 cm 4.2 - 5.9 / 3.9 - 5.3 cm LV Systolic Diameter PLAX 2.5 cm IVS Diastolic Thickness 0.9 cm 0.6 - 1.0 / 0.6 - 0.9 cm LVPW Diastolic Thickness 1.1 cm 0.6 - 1.0 / 0.6 - 0.9 cm LV Relative Wall Thickness 0.4 RV Internal Dim ED PLAX 3.1 cm LA Volume 36.4 cm??? 18 - 58 / 22 - 52 cm??? LA Volume Index 18.5 cm???/m??? 16 - 28 cm???/m??? M-MODE Aortic Root Diameter MM 2.1 cm LA Systolic Diameter MM 2.9 cm LA Ao Ratio MM 1.3 DOPPLER AV Peak Velocity 160.4 cm/s AV Peak Gradient 10.3 mmHg AV Mean Velocity 117.1 cm/s AV Mean Gradient 6.0 mmHg AV Velocity Time Integral 28.1 cm LVOT Peak Velocity 116.9 cm/s LVOT Peak Gradient 5.5 mmHg LVOT Velocity Time Integral 18.1 cm MV Peak Velocity 168.0 cm/s MV Peak Gradient 11.3 mmHg MV Mean Velocity 116.3 cm/s MV Mean Gradient 5.8 mmHg MV Velocity Time Integral 30.5 cm MV Area PHT 3.3 cm??? Mitral E Point Velocity 111.2 cm/s Mitral A Point Velocity 138.1 cm/s Mitral E to A Ratio 0.8 MV Deceleration Time 228.7 ms MV E' Velocity 7.8 cm/s Mitral E to MV E' Ratio 14.2 TR Peak Velocity 218.8 cm/s TR Peak Gradient 19.1 mmHg Right Ventricular Systolic Press 24.1 mmHg PV Peak Velocity 259.6 cm/s PV Peak Gradient 27.0 mmHg PV Mean Velocity 167.9 cm/s PV Mean Gradient 14.1 mmHg PV Velocity Time Integral 40.3 cm FINDINGS Left Ventricle Normal left ventricular size, wall thickness, systolic function with no obvious regional wall motion abnormalities. Normal left ventricular diastolic filling pattern for age. The ejection fraction is visually estimated at 55-60 %. Right Ventricle The right ventricle is normal in size and function. Right Atrium The right atrium is normal in size. Left Atrium The left atrium is normal in size. Mitral Valve Structurally normal mitral valve without significant stenosis or prolapse. There is no mitral regurgitation. Aortic Valve Structurally normal aortic valve without significant sclerosis or stenosis. There is no aortic regurgitation. Tricuspid Valve Structurally normal tricuspid valve without significant stenosis. Pulmonary artery systolic pressure is normal. Pulmonic Valve There is no pulmonic regurgitation. Valvular pulmonic stenosis. Pericardium Normal pericardium without effusion. Aorta Normal aortic root dimension. CONCLUSIONS The ejection fraction is visually estimated at 55-60 %. No obvious regional wall motion abnormalities. No significant valvular dysfunction No pericardial effusion RVSP estimated at 24 mmHg Previewed by: Dr Rogers Harden (Electronically Signed) Final Date: 05 December 2022 12:46
[2022-12-05 16:32] LABS: Chol/HDL Ratio 3.75 Ratio; LDL Cholesterol,Calculated 84.1 mg/dL (0.0-131.0)
--- NOTE | 2022-12-05 18:43 | CT ---
EXAMINATION TYPE: CT chest wo con CT DLP: 468 mGycm, Automated exposure control for dose reduction was used. DATE OF EXAM: 12/05/2022 6:25 PM COMPARISON: 08/15/2022. CLINICAL INDICATION:Male, 52 years old with history of chest pain; TECHNIQUE: Multiple axial images were obtained through the chest. Sagittal and coronal reformats were created for review. Contrast used: mL of (None if empty) Oral contrast used: (None if empty) FINDINGS: LUNGS/ PLEURA: No focal consolidation, pneumothorax or pleural effusion. Left lower lung 4 mm pulmona ry nodule near the lung base. AIRWAY: Patent and unremarkable. HEART: Size within normal limits. MEDIASTINUM: No gross evidence of adenopathy. VASCULATURE: No aortic aneurysm. MUSCULOSKELETAL: No acute osseous abnormalities, mild degeneration changes of the spine is no evidenc e for rib fracture. SOFT TISSUES/LYMPH NODES: Unremarkable. LOWER NECK: No significant findings. UPPER ABDOMEN: No significant findings. IMPRESSION: No evidence for acute process.
[2022-12-05] MEDS: atenoloL 50 MG TAB PO SCH (20:15)
[2022-12-05] MEDS ORDERED: ATORVASTATIN 40 MG TAB PO SCH (21:00)
[2022-12-06] MEDS: SODIUM CHLORIDE 0.9% 1,000 ML in EMPTY BAG 1 BAG IV SCH ×2 (03:44→13:39)
[2022-12-06] MEDS ORDERED: ATORVASTATIN 80 MG TAB PO ONE (05:00)
[2022-12-06] MEDS ORDERED: ASPIRIN 325 MG TAB PO ONE (05:00)
[2022-12-06] MEDS ORDERED: HEPARIN SODIUM,PORCINE (1 ML) 2,500 UNIT in SODIUM CHLORIDE 0.9% 250 ML IRRIGATION PRN (07:00)
[2022-12-06] MEDS ORDERED: HEPARIN SODIUM,PORCINE 10,000 UNIT in SODIUM CHLORIDE 0.9% 1,000 ML IRRIGATION PRN (07:00)
[2022-12-06 08:44] VITALS: RESP 16
[2022-12-06] MEDS: LOSARTAN-HCTZ 50-12.5 MG 1 EACH TAB PO SCH (08:51)
[2022-12-06] MEDS: NICOTINE 21MG/24HR PATCH TRANSDERM SCH (08:51)
[2022-12-06] MEDS: atenoloL 50 MG TAB PO SCH (08:51)
[2022-12-06] MEDS: SODIUM CHLORIDE 0.9% 1,000 ML IV SCH ×2 (08:51→13:40)
[2022-12-06] MEDS ORDERED: ASPIRIN 81 MG PO SCH (09:00)
[2022-12-06] MEDS ORDERED: LIDOCAINE 1% INJ 10MG/ML (20 ML MDV) SQ ONE (12:09)
[2022-12-06] MEDS ORDERED: MIDAZOLAM 2 MG/2 ML VIAL IVP ONE ×2 (12:14→12:53)
[2022-12-06] MEDS ORDERED: fentaNYL (PF) 50 MCG/1 ML VIAL IVP ONE (12:14)
[2022-12-06] MEDS ORDERED: IV FLUID CONTINUATION 1,000 ML IV ONE ×2 (12:18)
[2022-12-06] MEDS ORDERED: HEPARIN SODIUM 1,000 UN/ML (10ML VL) IV ONE (12:46)
[2022-12-06] MEDS ORDERED: IOPAMIDOL-370 200ML BTL INJ ONE (13:05)
[2022-12-06] MEDS ORDERED: RX INFO: IV CONTRAST WAS GIVEN 1 EACH MISC MISCELLANE PRN (13:12)
[2022-12-06] MEDS ORDERED: SODIUM CHLORIDE 0.9% 1,000 ML IV SCH (13:15)
--- NOTE | 2022-12-06 13:18 | P.PCN ---
Date of Procedure: 12/06/22 Description of Procedure: IFR measurement Procedure: The patient underwent cardiac catheterization by Dr. Harden was found to have borderline lesion in the mid LAD. Physiological evaluation was recommended. A 6-Kiswahili EBU 3.75 guiding catheter was introduced and the system, after cannulating the left main an Omni Doppler flow wire was introduced in the mid LAD and IFR was measured at 0.94. At that time the wire and the guiding catheter were removed. Hemostasis was obtained with deployment of an Angio-S eal. There was no the complications. The patient was returned to his room in stable condition. Of note that the patient received 5000 units of intravenous heparin at the start of the procedure. Impression: Nonhemodynamically significant mid LAD lesion with IFR of 0.94 Plan: The patient will continue with aggressive coronary risks modifications. I discussed those findings with him and his family and they are in full agreement and understanding. Duration of sedation 19 minutes.
[2022-12-06 14:40] VITALS: TEMP 97.8
[2022-12-06 15:23] VITALS: BP 121/78; PULSE 71
--- NOTE | 2022-12-06 16:47 | P.CARDCATH ---
Date of Procedure: 12/06/22 Description of Procedure: DIAGNOSTIC CORONARY ANGIOGRAPHY and LEFT HEART CATH REPORT PROCEDURES PERFORMED: Left heart catheterization Selective coronary angiography Moderate conscious sedation 40 mins Ultrasound-assisted right femoral arterial access Right common femoral arteriogram INDICATION: Positive dobutamine stress test 52-year-old with past medical history of smoking presented to the hospital with substernal chest pressure-like sensation. He generally walk on treadmill therefore data dobutamine stress echocardiogram. During the stress test patient experienced chest pain and shortness of breath. There were flat ST depressions on ECG during peak stress. He also noticed to have reduction in his blood pressure with inability to achieve target heart rate 80 reduce the test was terminated before the protocol. He with these findings she was scheduled for outpatient heart catheterization. CONSENT: I have discussed the risks, benefits and alternative therapies for the above-mentioned procedure, sedation/analgesia and necessary blood product administration (if indicated, as they pertain to this patient). The patient has indicated understanding and acceptance of the risks and procedures discussed. Conscious Sedation: Patient's ECG, heart rate, blood pressure, pulse oximetry was monitored throughout the duration of procedure under the direct supervision. 2 mg Versed and 50 mg Fentanyl were used for induction of moderate conscious sedation. Total duration of 40 minutes. PROCEDURE:After the risks, benefits and alternatives of the above mentioned procedure explained in detail with the patient, informed consent was obtained. Ultrasound was used to identify the radial artery. Patient was taken to the catheterization lab and prepped and draped in usual sterile fashion. Right radial artery was found to be very small on ultrasound. The pulse on the left radial artery was also febrile. Due to this we decided to proceed with right femoral access. Ultrasound was assisted to identify the common femoral artery. Lidocaine was infiltrated over the right femoral artery. A 6-Mongolian sheath was placed in the right radial artery using modified Seldinger technique. J tipped wire was advanced under fluoroscopic guidance. Over the wire JL4 diagnostic catheter was advanced. Wire was removed, catheter was flushed and manipulated under fluoroscopy to selectively engaged the left coronary ostium. Left coronary angioplasty was performed in different angiographic projections. This catheter was exchanged for a JR4 diagnostic catheter over the wire. The catheter was flushed and manipulated to cross the aortic valve. LV pressures were obtained. Pullback was performed across aortic valve and catheter was manipulated to selectively engage the right coronary ostium under fluoroscopic guidance. Right coronary angiography was performed in different angiographic projections. Catheter was removed over the wire. The sheath was flushed. After careful review of angiographic images, we decided to proceed with flow assessment of left ventricular descending artery. HEMODYNAMICS: Aortic Pressure: 124/60 mmHg. LV pressure: 126/10 mmHg. LVEDP 16 mmHg. SELECTIVE CORONARY ARTERIOGRAPHY: LEFT MAIN: The left main is a large caliber vessel which bifurcates into the LAD and circumflex. There is no significant stenosis. LEFT ANTERIOR DESCENDING CORONARY ARTERY: LAD is a small caliber vessel as compared to other left system vessels. It gives rise to a large diagonal branch which reaches up to the apex. It appears angiographically normal. Proximal LAD is a large and appears angiographically normal. Mid LAD appears to have a 50-60 % tubular luminal narrowing however this is a small vessel measuring around 1.5 mm. LAD terminates before reaching the apex. LEFT CIRCUMFLEX CORONARY ARTERY: LCx is very dominant. It's a very large caliber vessel. It gives rise to 3 large OM branches and the PDA and PL branches which reaches to the apex. LCx system appears angiographically normal. RIGHT CORONARY ARTERY: Non-dominant. RCA is a small caliber vessel which gives rise to the marginal branch. It does not supply PDA and PL branches. It appears angiographically normal. IMPRESSION: Moderate (50-60%) mid LAD stenosis. LAD is a small caliber vessel. Dominant and large caliber LCx which appears angiographically normal Normal left sided filling pressures PLAN: Plan for flow assessment of moderate lesion in LAD Performing Physician Rogers Harden MD
--- NOTE | 2022-12-06 18:25 | HP ---
HISTORY AND PHYSICAL HISTORY OF PRESENT ILLNESS: He was seen up on the floor last night. A 52-year-old white male came in with chest pain and discomfort past 3 days. He has been out around and did a lot of yard work, etc. He has a history of came in with some chest pain. He has a history of mitral valve prolapse and some palpitations in the past. MEDICATIONS AT HOME: Reviewed includin. Spiriva inhaler. 2. Tenormin 25 daily. 3. Lexapro 20 daily. 4. Hyzaar 50/12.5 daily. 5. Nicotine patch 21 mg daily. 6. He takes sildenafil p.r.n. 7. Symbicort 160/4.5 two puffs b.i.d. PAST MEDICAL HISTORY: History of mitral valve prolapse and history of marijuana use. PHYSICAL EXAMINATION: VITAL SIGNS: Blood pressure 140s to 150s over 90s to 102, pulse 102 to 122, temperature 98.1, respiratory rate 18 to 20. LUNGS: Decreased breath sounds x4. OPHTHALMOLOGIC: Pupils are equal, round, and reactive. NEUROLOGIC: Alert and oriented x3. Cranial nerves are intact. PSYCHIATRIC: Fair mood and affect. LABORATORY DATA: EKG shows sinus tachycardia. Negative D-dimer. Negative troponin. ASSESSMENT AND PLAN: The patient is ruled out for myocardial infarction. He is going to possibly have a heart catheterization in the morning. Prognosis is guarded. MMODL / IJN: [id number] /
== END 2022-12-06 19:16 | disposition home or self-care (01) ==
LOC: EC 21:39 → 6NMEDSUR 23:42
PROVIDERS: ADMIT Family Medicine; ATTEND Family Medicine
DX: R00.2 Palpitations (principal); R07.89 Other chest pain; I25.10 Atherosclerotic heart disease of native coronary artery without angina pectoris; I10 Essential (primary) hypertension; I34.1 Nonrheumatic mitral (valve) prolapse; F12.90 Cannabis use, unspecified, uncomplicated; F17.210 Nicotine dependence, cigarettes, uncomplicated; Z79.51 Long term (current) use of inhaled steroids; Z79.899 Other long term (current) drug therapy; Z82.49 Family history of ischemic heart disease and other diseases of the circulatory system; Z88.5 Allergy status to narcotic agent
CPT/HCPCS: 96360; 99285; 36415; 93005; 93306; 93351; 85379; 83880; 80061; 80053; 83735; 84484 ×2; 85025; 85610; 85730; 71046; 71250; 93458; G0378 ×3; S4990 ×2; J2250; J2001; J1644; J3010; Q9967; 76937; 93799

== ENCOUNTER 2022-12-12 07:53 | Day surgery (SDC) | payer OTHER ==
[2022-12-11 11:08] VITALS: BMI 23.7
[~2022-12-12 07:53] MED LIST changes: +LIDOCAINE 1% (10MG/ML) FOR IV START INTRADERMA PRN
[2022-12-12 08:27] VITALS: TEMP 96.8
[2022-12-12] MEDS ORDERED: LIDOCAINE 1% INJ 10MG/ML (20 ML MDV) ONE (08:46)
[2022-12-12] MEDS ORDERED: PROPOFOL 10 MG/ML 20 ML VIAL IV ONE (08:46)
--- NOTE | 2022-12-12 08:47 | P.GSHP ---
History of Present Illness H&P Date: 12/12/22 Chief Complaint: GERD, abdominal pain This a 52-year-old male presents today for EGD. Patient's echo placed abdominal pain. Past Medical History Past Medical History: GERD/Reflux, Hypertension, Mitral Valve Prolapse (MVP) Additional Past Medical History / Comment(s): Bronchitis usually every year, kidney stones, ABD. PAIN AND BLEEDING IN STOOL SINCE FEB 2022 History of Any Multi-Drug Resistant Organisms: None Reported Past Surgical History: Heart Catheterization, Orthopedic Surgery Additional Past Surgical History / Comment(s): ORAL SURGERY and right knee surgery 2018, COLONOSCOPY, Past Anesthesia/Blood Transfusion Reactions: No Reported Reaction Smoking Status: Current every day smoker - Past Family History Sister(s) Family Medical History: Cancer Additional Family Medical History / Comment(s): 2 sisters with female and breast CA Mother Family Medical History: Cancer Additional Family Medical History / Comment(s): breast Medications and Allergies Home Medications Medication Instructions Recorded Confirmed Type Budesonide/Formoterol Fumarate 2 puff INHALATION RT-BID 08/12/22 12/12/22 History [Symbicort 160-4.5 Mcg Inhaler] Omeprazole 40 mg PO HS 08/12/22 12/12/22 History atenoloL [Tenormin] 50 mg PO BID 08/12/22 12/12/22 History Escitalopram [Lexapro] 20 mg PO DAILY 12/04/22 12/12/22 History Losartan-Hctz 50-12.5 mg [Hyzaar 1 tab PO DAILY 12/04/22 12/12/22 History 50-12.5] Nicotine 21Mg/24Hr Patch [Habitrol] 1 patch TRANSDERM DAILY 12/04/22 12/12/22 Hi story Sildenafil Citrate 50 mg PO DIRECTED PRN 12/04/22 12/12/22 History Tiotropium 2.5 Mcg/Puff [Spiriva 1 puff INHALATION RT-DAILY 12/04/22 12/12/22 History Respimat 2.5 Mcg] Aspirin 81 mg PO DAILY 90 Days #90 tab 12/06/22 12/12/22 Rx Allergies Allergy/AdvReac Type Severity Reaction Status Date / Time pineapple Allergy Anaphylaxis Verified 12/12/22 08:16 hydrocodone AdvReac seizure Verified 12/12/22 08:16 Surgical - Exam Vital Signs Temp Pulse BP Pulse Ox 96.8 F L 74 118/70 96 12/12/22 08:18 12/12/22 08:18 12/12/22 08:18 12/12/22 08:18 - General well developed, well nourished, no distress - Eyes PERRL - ENT normal pinna - Neck no masses - Respiratory normal expansion - Cardiovascular Rhythm: regular - Abdomen Abdomen: soft, non tender Assessment and Plan Assessment: GERD, abdominal pain. We'll perform EGD .
--- NOTE | 2022-12-12 08:55 | P.OP ---
Date of Procedure: 12/12/22 Preoperative Diagnosis: GERD Abdominal pain Postoperative Diagnosis: Antral gastritis Sliding hiatal hernia Mild esophagitis Procedure(s) Performed: EGD Anesthesia: MAC Surgeon: Jasbir Mina Pathology: other (Antrum, esophagus) Condition: stable Disposition: PACU Description of Procedure: The patient's placed on the endoscopy table in the lateral position. He received IV sedation. The gastro-/oropharynx passed in the esophagus and stomach. Scope was then placed through the pylorus. The first and second portion of the duodenum appeared normal. Scope summer back the antrum this. Mildly inflamed. A biopsies performed. The scope was then retroflexed and the remainder the stomach appeared normal. The patient had a moderate sliding hiatal hernia. The GE junction was at 38 cm per the distal esophagus. Minimal inflamed. A biopsies performed. The proximal esophagus appeared normal. Scope withdrawn for patient.
[2022-12-12 09:34] VITALS: BP 105/70; PULSE 72; RESP 16
== END 2022-12-12 09:17 | disposition home or self-care (01) ==
LOC: ORWHC2ENDO 07:53
PROVIDERS: ATTEND Surgery
DX: K29.50 Unspecified chronic gastritis without bleeding (principal); K31.A11 Gastric intestinal metaplasia without dysplasia, involving the antrum; K21.00 Gastro-esophageal reflux disease with esophagitis, without bleeding; K44.9 Diaphragmatic hernia without obstruction or gangrene; I10 Essential (primary) hypertension; I34.1 Nonrheumatic mitral (valve) prolapse; I49.9 Cardiac arrhythmia, unspecified; J44.9 Chronic obstructive pulmonary disease, unspecified; F41.9 Anxiety disorder, unspecified; F17.210 Nicotine dependence, cigarettes, uncomplicated; Z80.3 Family history of malignant neoplasm of breast; Z88.5 Allergy status to narcotic agent; Z79.51 Long term (current) use of inhaled steroids; Z91.048 Other nonmedicinal substance allergy status; Z79.899 Other long term (current) drug therapy
CPT/HCPCS: 88305; 88342; 43239; J2001; J2704

== ENCOUNTER 2023-01-22 08:22 | Day surgery (SDC) | payer OTHER ==
[2023-01-20 11:28] VITALS: BMI 24.3
[~2023-01-22 08:22] MED LIST changes: +ACETAMINOPHEN TAB 500 MG TAB PO PRN; +DEXAMETHASONE SOD PHOSPHATE 4 MG/ML 1 ML VIAL IV ONE; +HEPARIN SODIUM,PORCINE/PF 5,000 UNIT/0.5 ML SYRINGE SQ PRN; -LACTATED RINGERS 1,000 ML IV SCH; +MIDAZOLAM 2 MG/2 ML VIAL IV PRN; +ONDANSETRON 4 MG/2 ML VIAL IVP ONE
[2023-01-22] MEDS: LACTATED RINGERS 1,000 ML IV SCH ×2 (09:01→15:17)
[2023-01-22] MEDS ORDERED: ROCURONIUM 10 MG/ML (5 ML VIAL) IV ONE (09:23)
[2023-01-22] MEDS ORDERED: SUCCINYLCHOLINE CHLORIDE 200 MG/10 ML VIAL IV ONE (09:23)
[2023-01-22] MEDS ORDERED: GLYCOPYRROLATE 0.2 MG/ML 2 ML VIAL ONE (09:23)
[2023-01-22] MEDS ORDERED: LIDOCAINE 1% INJ 10MG/ML (20 ML MDV) ONE (09:23)
[2023-01-22] MEDS ORDERED: MIDAZOLAM 2 MG/2 ML VIAL ONE (09:23)
[2023-01-22] MEDS ORDERED: PROPOFOL 10 MG/ML 20 ML VIAL IV ONE (09:23)
[2023-01-22] MEDS ORDERED: NEOSTIGMINE 1 MG/ML 10 ML VIAL ONE (09:23)
[2023-01-22] MEDS ORDERED: PHENYLEPHRINE-0.9% NACL SYG 1,000 MCG/10 ML SYRINGE ONE (09:23)
[2023-01-22] MEDS ORDERED: fentaNYL (PF) 50 MCG/ML 2 ML AMP ONE (09:23)
[2023-01-22] MEDS ORDERED: KETOROLAC 15 MG/ML 1 ML VIAL ONE (09:23)
[2023-01-22] MEDS ORDERED: BUPIVACAINE (PF) 0.25% 30 ML VIAL SQ ONE (09:54)
[2023-01-22] MEDS ORDERED: ACETAMINOPHEN TAB 325 MG TAB PO PRN (10:49)
[2023-01-22] MEDS ORDERED: LACTATED RINGERS 1,000 ML IV ONE (10:49)
[2023-01-22] MEDS ORDERED: NALOXONE 0.4 MG/ML 1 ML VIAL IV PRN (10:49)
[2023-01-22] MEDS ORDERED: ONDANSETRON 4 MG/2 ML VIAL IVP PRN (10:49)
[2023-01-22] MEDS ORDERED: HYDROmorphone 1 MG/ML 1 ML SYRINGE IVP PRN (10:49)
[2023-01-22] MEDS ORDERED: HYDROcodone/APAP 5-325MG 1 EACH TAB PO PRN ×2 (10:49)
--- NOTE | 2023-01-22 10:49 | P.OP ---
Date of Procedure: 01/22/23 Preoperative Diagnosis: GERD Postoperative Diagnosis: GERD Hiatal hernia Procedure(s) Performed: Laparoscopic David fundal plication Anesthesia: JANNET Surgeon: Jasbir Mina Estimated Blood Loss (ml): 5 Pathology: none sent Condition: stable Disposition: PACU Description of Procedure: The patient was placed on the operating table in the supine position. The patient received general anesthesia. And was placed in dorsal lithotomy position. The patient was prepped and draped in the usual sterile fashion. The skin incision sites were anesthetized with 1% local Xylocaine. The skin was incised in the left periumbilical area and then using a blade less 5 mm trocar u nder direct visualization panel cavity was entered. After adequate insufflation the laparoscope was then placed into the peritoneal cavity. Next a 5 mm trochars placed in the right epigastric position. Another 5 millimeter trocar the right lateral position. Another 5 millimeter trocar in the left lateral position a 5 mm trocar is placed in the left epigastric position. And then the initial 5 mm trocar was exchanged for a 10 mm trocar. The left lateral lobe liver was retracted. The hernia was seen. The crural defect was then dissected using the Harmonic scissors device. A 360 crural dissection was performed the esophagus stomach was reduced back into the peritoneal Cavity. The crural defect was then closed using 2-0 Ethibond suture. Next the fundus of the stomach was mobilized using the [place] scissors device. and then a 58-Algerian bougie dilator was placed oropharynx passed into the esophagus and stomach the fundal plication wrap was then performed by grasping the fundus posteriorly and bringing it around the esophagus and stomach fundoplication was then performed using 2-0 Ethibond suture. Care was taken that the fundal location rested over top of the intra-abdominal esophagus. There was no injury seen to the stomach or esophagus. The dilator was then withdrawn. The abdomen was irrigated there is no bleeding seen. The trochars were then withdrawn and then skin incision sites were closed using 3-0 Monocryl suture Steri-Strips are applied. Patient thought procedure well and sent to recovery room in stable condition.
[2023-01-22] MEDS: HYDROmorphone 0.5 MG/0.5 ML SYRINGE IVP PRN ×3 (10:52→12:30)
[2023-01-22] MEDS: oxyCODONE-APAP 5-325MG 1 EACH TAB PO PRN ×2 (15:19→21:44)
[2023-01-22] MEDS: KETOROLAC 15 MG/ML 1 ML VIAL IVP SCH (18:51)
--- NOTE | 2023-01-22 19:56 | CONS ---
CONSULTATION HISTORY OF PRESENT ILLNESS: This is a 52-year-old white male for consult today. He is status post surgery on hiatal hernia today. He had a David procedure done, medical management consult, he has bad COPD, asthma history. He is on breathing treatments and inhalers at home. PHYSICAL EXAMINATION: VITAL SIGNS: Blood pressure is 114 to 126 over 50s to 70s, O2 98 to 100 on room air, pulse 70s to 80s, respiratory rate 16 to 18. CARDIOVASCULAR: S1, S2. LUNGS: Scattered wheeze and rhonchi. HEMATOLOGY: Negative for Homans. PSYCH: Fair mood and affect. NEUROLOGIC: Alert and oriented x3. VASCULAR: Normal dorsalis pedis, posterior tibial pulses and radial pulse. ABDOMEN: Soft. ASSESSMENT: Status post David repair, hypertension, depression, asthma, COPD. Continue current treatment. Prognosis guarded. Follow up in next 24 to 48 hours with GERD protocol, GERD for acid reflux. Prognosis guarded. Please see further orders. MMODL / IJN: [id number] /
[2023-01-22] MEDS ORDERED: TIOTROPIUM 2.5 MCG INHALER INHALATION SCH (20:00)
[2023-01-22] MEDS: atenoloL 50 MG TAB PO SCH (20:04)
[2023-01-22] MEDS: IPRATROPIUM-ALBUTEROL 3 ML NEB INHALATION SCH (20:10)
[2023-01-22] MEDS: SYMBICORT 160-4.5 MCG INHALER INHALATION SCH (20:10)
[2023-01-22] MEDS ORDERED: PANTOPRAZOLE 40 MG TABLET PO SCH (21:00)
[2023-01-23] MEDS: KETOROLAC 15 MG/ML 1 ML VIAL IVP SCH ×2 (00:07→06:09)
[2023-01-23] MEDS: HYDROmorphone 0.5 MG/0.5 ML SYRINGE IVP PRN ×2 (00:10→03:14)
[2023-01-23] MEDS: oxyCODONE-APAP 5-325MG 1 EACH TAB PO PRN (06:09)
[2023-01-23 07:55] VITALS: BP 136/66; TEMP 97.5
[2023-01-23] MEDS: IPRATROPIUM-ALBUTEROL 3 ML NEB INHALATION SCH (08:51)
[2023-01-23] MEDS: SYMBICORT 160-4.5 MCG INHALER INHALATION SCH (08:51)
[2023-01-23] MEDS ORDERED: ASPIRIN 81 MG PO SCH (09:00)
[2023-01-23] MEDS ORDERED: LOSARTAN-HCTZ 50-12.5 MG 1 EACH TAB PO SCH (09:00)
[2023-01-23] MEDS ORDERED: ENOXAPARIN 40 MG/0.4 ML SYRINGE SQ SCH (09:00)
[2023-01-23] MEDS ORDERED: ESCITALOPRAM 20 MG TAB PO SCH (09:00)
[2023-01-23 09:13] VITALS: PULSE 80
[2023-01-23] MEDS: atenoloL 50 MG TAB PO SCH (09:42)
[2023-01-23 11:19] VITALS: RESP 20
--- NOTE | 2023-01-23 12:52 | P.DS ---
Providers Expected date of discharge: 01/23/23 Attending physician: Jasbir Mina Consults: 01/22/23 10:49 Consult Physician Routine Consulting Provider: Alex Hernandez Consult Reason/Comments: Medical management Do you want consulting provider notified?: Yes Primary care physician: Alex Hernandez [facility] Course: Discharge diagnosis 1. GERD and hiatal hernia status post laparoscopic David fundoplication Hospital course This is a 52-year-old male with a history of GERD and hiatal hernia. He is status post laparoscopic David fundoplication. Patient tolerated surgery well. He is tolerating liquids. His pain is controlled. He is having flatus. He has been up and ambulating. He is afebrile. He is stable for discharge. Incision sites are clean dry and intact. Please refer to chart for any further details. Physician [employer] Worker note has been reviewed by physician. Signing provider agrees with the documented findings, assessment, and plan of care. Patient Condition at Discharge: Stable Plan - Discharge Summary Discharge Rx Participant: No New Discharge Prescriptions: New Ibuprofen [Motrin] 600 mg PO Q8HR PRN #30 tab PRN Reason: Pain oxyCODONE HCL [OxyIR] 5 mg PO Q6H PRN 3 Days #12 tab PRN Reason: Pain Acetaminophen Tab [Tylenol] 1,000 mg PO Q6HR PRN #30 tablet PRN Reason: Pain Continue atenoloL [Tenormin] 50 mg PO BID Tiotropium 2.5 Mcg/Puff [Spiriva Respimat 2.5 Mcg] 1 puff INHALATION HS Escitalopram [Lexapro] 20 mg PO QAM Losartan-Hctz 50-12.5 mg [Hyzaar 50-12.5] 1 tab PO QAM Omeprazole 40 mg PO HS Budesonide/Formoterol Fumarate [Symbicort 160-4.5 Mcg Inhaler] 2 puff INHALATION RT-BID Aspirin 81 mg PO DAILY 90 Days #90 tab Ipratropium-Albuterol Nebulize [Duoneb 0.5 mg-3 mg/3 ml Soln] 3 ml INHALATION BID Discharge Medication List Budesonide/Formoterol Fumarate [Symbicort 160-4.5 Mcg Inhaler] 2 puff INHALATION RT-BID 08/12/22 [History] Omeprazole 40 mg PO HS 08/12/22 [History] atenoloL [Tenormin] 50 mg PO BID 08/12/22 [History] Escitalopram [Lexapro] 20 mg PO QAM 12/04/22 [History] Losartan-Hctz 50-12.5 mg [Hyzaar 50-12.5] 1 tab PO QAM 12/04/22 [History] Tiotropium 2.5 Mcg/Puff [Spiriva Respimat 2.5 Mcg] 1 puff INHALATION HS 12/04/22 [History] Aspirin 81 mg PO DAILY 90 Days #90 tab 12/06/22 [Rx] Ipratropium-Albuterol Nebulize [Duoneb 0.5 mg-3 mg/3 ml Soln] 3 ml INHALATION BID 12/25/22 [History] Acetaminophen Tab [Tylenol] 1,000 mg PO Q6HR PRN #30 tablet 01/23/23 [Rx] Ibuprofen [Motrin] 600 mg PO Q8HR PRN #30 tab 01/23/23 [Rx] oxyCODONE HCL [OxyIR] 5 mg PO Q6H PRN 3 Days #12 tab 01/23/23 [Rx] Follow up Appointment(s)/Referral(s): Jasbir Mina MD [STAFF PHYSICIAN] - 02/04/23 1:50 pm Patient Instructions/Handouts: *Surgery [facility] - ([facility]o [facility]ia) Lap David Fundiplication Post-Op Instructions Activity/Diet/Wound Care/Special Instructions: No driving while taking OxyIR No lifting over 10 pounds Shower daily. No soaking or tub baths for 2 weeks Very light activity until you are reevaluated at your follow up appointment with your surgeon Stay on Full liquid diet for 2 weeks Discharge Disposition: HOME SELF-CARE
== END 2023-01-23 12:02 | disposition home or self-care (01) ==
LOC: OR 08:22 → 4SSUR 14:45 → OR 01-23 12:02
PROVIDERS: ATTEND Surgery
DX: K21.9 Gastro-esophageal reflux disease without esophagitis (principal); K44.9 Diaphragmatic hernia without obstruction or gangrene; J44.9 Chronic obstructive pulmonary disease, unspecified; I10 Essential (primary) hypertension; F32.A Depression, unspecified; Z79.899 Other long term (current) drug therapy
CPT/HCPCS: 94640 ×4; 43280; J1100; J0690; J2405; J1650; J1170 ×3; J1885 ×2; J0665

== ENCOUNTER → 2023-03-04 | Outpatient (CLI) | payer OTHER | LOC: CPPFTMAIN 14:49 | PROVIDERS: ATTEND Student in an Organized Health Care Education/Training Program | DX: J44.1 Chronic obstructive pulmonary disease with (acute) exacerbation (principal); F12.90 Cannabis use, unspecified, uncomplicated; F17.200 Nicotine dependence, unspecified, uncomplicated; Z88.5 Allergy status to narcotic agent; Z91.018 Allergy to other foods; Z79.899 Other long term (current) drug therapy | CPT/HCPCS: 94060; 94726; 94729 ==

== ENCOUNTER 2023-07-04 09:09 | Emergency (ER) | payer OTHER ==
[2023-07-04 10:03] VITALS: TEMP 98.3
[2023-07-04] MEDS: KETOROLAC 15 MG/ML 1 ML VIAL IVP STA (10:41)
[2023-07-04] MEDS: PANTOPRAZOLE 40 MG/10 ML VIAL IVP STA (10:42)
[2023-07-04] MEDS: ONDANSETRON 4 MG/2 ML VIAL IVP STA (10:42)
[2023-07-04] MEDS: SODIUM CHLORIDE 0.9% 1,000 ML IV STA (10:42)
[2023-07-04 10:51] LABS: Basophils # (A) 0.1 k/uL (0-0.2); Basophils % (A) 0 %; Eosinophils # (A) 0.1 k/uL (0-0.7); Eosinophils % (A) 1 %; HCT 50.2 % (39.0-53.0); HGB 16.4 gm/dL (13.0-17.5); Lymphocytes # (A) 1.5 k/uL (1.0-4.8); Lymphocytes % (A) 8 %; MCH 29.3 pg (25.0-35.0); MCHC 32.7 g/dL (31.0-37.0); MCV 89.6 fL (80.0-100.0); Mean Platelet Volume 7.1; Monocytes # (A) 1.1 k/uL (0-1.0); Monocytes % (A) 5 %; Neutrophils # (A) 16.9 k/uL (1.3-7.7); Neutrophils % (A) 86 %; Platelet Count 362 k/uL (150-450); RDW 12.7 % (11.5-15.5); WBC 19.7 k/uL (3.8-10.6)
[2023-07-04 11:06] LABS: ALT 19 U/L (4-49); AST 20 U/L (17-59); African American GFR (CKD) >90 (>60 ml/min/1.73 sqM); Albumin 4.6 g/dL (3.5-5.0); Alkaline Phosphatase 95 U/L (38-126); Amylase 72 U/L (30-110); Anion Gap 6 mmol/L; Blood Urea Nitrogen 10 mg/dL (9-20); Calcium 9.8 mg/dL (8.4-10.2); Carbon Dioxide 27 mmol/L (22-30); Chloride 105 mmol/L (98-107); Glucose 128 mg/dL (74-99); Lipase 82 U/L (23-300); Non-African American GFR(CKD) 84 (>60 ml/min/1.73 sqM); Sodium 138 mmol/L (137-145); Total Bilirubin 0.8 mg/dL (0.2-1.3); Total Protein 7.4 g/dL (6.3-8.2)
--- NOTE | 2023-07-04 11:46 | CT ---
EXAMINATION TYPE: CT abdomen pelvis w con CT DLP: 671.5 mGycm, Automated exposure control for dose reduction was used. DATE OF EXAM: 07/04/2023 11:25 AM COMPARISON: 09/30/2019 CLINICAL INDICATION:Male, 53 years old with history of abd pain, lower; mid-lower abd pain, nausea. h x kidney stones. TECHNIQUE: Axial CT abdomen pelvis w con;Sagittal and coronal reformats were created on a separate w orkstation. Contrast used:100 ml mL of Isovue 300 with IV Contrast, (none if empty) Oral contrast used: without Oral Contrast (none if empty) FINDINGS: LOWER CHEST: Unremarkable ABDOMEN LIVER: Unremarkable GALLBLADDER AND BILE DUCTS: Unremarkable. PANCREAS: Unremarkable. SPLEEN: Unremarkable. ADRENAL GLANDS: Indeterminate left adrenal 21 mm nodule seen dating back to at least 2019. KIDNEYS AND URETERS: Partially obstructing calculus at the ureteral pelvic junction on the right jacobo uring 3 mm. Additional 2 mm nonobstructing right renal calculus. No left hydronephrosis. Left nonobst ructing 3 mm calculus. PELVIS BLADDER: Unremarkable REPRODUCTIVE: Unremarkable. ABDOMEN & PELVIS STOMACH AND BOWEL circumferential wall thickening of the sigmoid colon with pedroza measuring up to 6 m m. Is upstream stool burden. Postsurgical repair changes to the gastroesophageal junction. Rectal wal l may also be mildly thickened injury up to 8 mm. PERITONEUM/RETROPERITONEUM: No evidence of pneumoperitoneum or free fluid. VASCULATURE: Mild atherosclerotic calcifications are present throughout the abdominal aorta and its b ranches. No evidence of aortic aneurysm. MUSCULOSKELETAL: No acute osseous abnormalities. Mild disc degeneration changes are present throughou t the thoracolumbar spine. Grade 1 anterolisthesis of L5 on S1 with bilateral spondylolysis. LYMPH NODES: No gross evidence for lymphadenopathy. SOFT TISSUE/ABDOMINAL WALL: Unremarkable IMPRESSION: 1. Colitis proctitis with upstream accumulation of stool. 2. Right renal pelvis 3 mm calculus without significant hydronephrosis suggesting partial obstructio n. Additional nonobstructing bilateral renal calculi. 3. Left adrenal nodule which previously demonstrated Hounsfield units compatible with adrenal adenom a. Seen dating back to at least 2013 however increased in size today.
[2023-07-04] MEDS: MORPHINE SULFATE 4 MG/ML SYRINGE IVP STA (12:11)
[2023-07-04 12:40] LABS: Appearance,Urine Clear (Clear); Bilirubin,Urine Negative (Negative); Blood,Urine Negative (Negative); Color,Urine Light Yellow; Glucose,Urine (UA) Negative (Negative); Ketones,Urine Negative (Negative); Leukocyte Esterase,Urine Negative (Negative); Nitrite,Urine Negative (Negative); Protein,Urine Trace (Negative); Urobilinogen,Urine <2.0 mg/dL (<2.0)
[2023-07-04 12:45] LABS: Specific Gravity,Urine >1.050 (1.001-1.035)
[2023-07-04 13:01] VITALS: BP 117/72; PULSE 72; RESP 18
--- NOTE | 2023-07-04 13:21 | ED ---
General Adult HPI - General Chief complaint: Abdominal Pain Stated complaint: abd pain Time Seen by Provider: 07/04/23 10:30 Source: patient, RN notes reviewed, old records reviewed Mode of arrival: ambulatory Limitations: no limitations - History of Present Illness Initial comments: Patient is a 53-year-old male who presents emergency department complaining of abdominal pain. States it started for the last 2 days. Is lower abdominal pain in nature. No dysuria or hematuria. No nausea or vomiting. Some mild diarrhea. No blood in his stool. No significant abdominal surgery in the past other than hiatal hernia repair. Presents for further evaluation at this time. Has not noticed any blood in the stool. No fevers or chills. No urinary complaints. No chest pain or shortness of breath. States he does have a history of diverticulosis. - Related Data Home Medications Medication Instructions Recorded Confirmed Budesonide/Formoterol Fumarate 2 puff INHALATION RT-BID 08/12/22 07/04/23 [Symbicort 160-4.5 Mcg Inhaler] Omeprazole 40 mg PO HS 08/12/22 07/04/23 atenoloL [Tenormin] 50 mg PO BID 08/12/22 07/04/23 Escitalopram [Lexapro] 20 mg PO DAILY 12/04/22 07/04/23 Tiotropium 2.5 Mcg/Puff [Spiriva 1 puff INHALATION RT-HS 12/04/22 07/04/23 Respimat 2.5 Mcg] Albuterol Sulfate [Ventolin HFA] 1 - 2 puff INHALATION RT-Q4H PRN 07/04/23 07/04/23 Aspirin EC [Ecotrin Low Dose] 81 mg PO DAILY 07/04/23 07/04/23 Atorvastatin Calcium [Lipitor] 40 mg PO HS 07/04/23 07/04/23 Ezetimibe [Zetia] 10 mg PO DAILY 07/04/23 07/04/23 Ondansetron [Zofran] 4 mg PO DAILY PRN 07/04/23 07/04/23 Previous Rx's Medication Instructions Recorded Amoxic-Pot Clav 875-125Mg 1 tab PO Q12HR 14 Days #28 tab 07/04/23 [Augmentin 875-125] Allergies Allergy/AdvReac Type Severity Reaction Status Date / Time pineapple Allergy Anaphylaxis Verified 07/04/23 12:57 hydrocodone AdvReac seizure Verified 07/04/23 12:57 Opioids - Morphine Analogues AdvReac Seizure Verified 07/04/23 12:57 Opioids-Meperidine and AdvReac Seizure Verified 07/04/23 12:57 Related Review of Systems ROS Statement: Those systems with pertinent positive or pertinent negative responses have been documented in the HPI. Review of Systems: CONST: Denies fever EYES: Denies blurry vision ENT: Denies nasal congestion C/V: Denies Chest pain RESP: Denies shortness of breath GI: Endorses abdominal pain : Denies dysuria SKIN: Denies rash. MSK: Denies joint pain. NEURO: Denies headache ROS Other: All systems not noted in ROS Statement are negative. Past Medical History Past Medical History: COPD, GERD/Reflux, Hypertension, Mitral Valve Prolapse (MVP) Additional Past Medical History / Comment(s): hiatal hernia, Bronchitis usually every year, kidney stones, 2L O2 at night History of Any Multi-Drug Resistant Organisms: None Reported Past Surgical History: Heart Catheterization, Orthopedic Surgery Additional Past Surgical History / Comment(s): ORAL SURGERY and right knee surgery 2019 Past Anesthesia/Blood Transfusion Reactions: No Reported Reaction Additional Past Anesthesia/Blood Transfusion Reaction / Comment(s): no hx blood tranfusion Past Psychological History: Anxiety Smoking Status: Current every day smoker Past Alcohol Use History: None Reported Past Drug Use History: Marijuana - Past Family History Sister(s) Family Medical History: Cancer Additional Family Medical History / Comment(s): 2 sisters with female and breast CA Mother Family Medical History: Cancer Additional Family Medical History / Comment(s): breast General Exam - General Exam Comments Initial Comments: General: Appears in mild to moderate distress secondary to abdominal pain. HEAD: Normal with no signs of head trauma. EYES: PERRLA, EOMI, conjunctiva normal, no discharge. ENT: Hearing grossly intact, normal oropharynx. RESPIRATORY: Clear breath sounds bilaterally. No wheezes, rales, or rhonchi. C/V: Regular rate and rhythm. S1 and S2 auscultated, no edema, peripheral pulses 2+ and intact throughout ABD: Abdomen soft, nondistended. Tender to palpation in the bilateral lower quadrants. No guarding. No rebound tenderness. No peritoneal signs. EXT: Normal range of motion, no obvious deformity SKIN: No rashes or lesions observed on exposed skin. NEURO: Alert and oriented x 4. Limitations: no limitations Course Vital Signs 07/04/23 07/04/23 09:30 12:10 Temperature 98.3 F Pulse Rate 98 72 Respiratory 20 18 Rate Blood Pressure 138/85 117/72 O2 Sat by Pulse 99 100 Oximetry Medical Decision Making - Medical Decision Making Was pt. sent in by a medical professional or institution (, [facility], [employer], urgent care, hospital, or senior care...) When possible be specific @ -No Did you speak to anyone other than the patient for history (EMS, parent, family, police, friend...)? What history was obtained from this source @ -No Did you review nursing and triage notes (agree or disagree)? Why? @ -I reviewed and agree with nursing and triage notes Were old charts reviewed (outside hosp., previous admission, EMS record, old EKG, old radiological studies, urgent care reports/EKG's, senior care records)? Report findings @ -No old charts were reviewed Differential Diagnosis (chest pain, altered mental status, abdominal pain women, abdominal pain men, vaginal bleeding, weakness, fever, dyspnea, syncope, headache, dizziness, GI bleed, back pain, seizure, CVA, palpatations, mental health, musculoskeletal)? @ -Differential Abdominal Pain Men: Appendicitis, cholecystitis, diverticulosis, ischemic bowel, pancreatitis, hepatitis, UTI, gastroenteritis, AAA, incarcerated hernia, bowel obstruction, constipation, inflammatory bowel, hepatitis, peptic ulcer disease, splenic infarction, perforated viscus, testicular torsion, this is not meant to be an all-inclusive list EKG interpreted by me (3pts min.). @ -None done X-rays interpreted by me (1pt min.). @ -None done CT interpreted by me (1pt min.). @ -CT abdomen pelvis reveals colitis and proctitis. Also an uncomplicated UPJ stone on the right at 3 mm. Neck adrenal nodule as well. U/S interpreted by me (1pt. min.). @ -None done What testing was considered but not performed or refused? (CT, X-rays, U/S, labs)? Why? @ -None What meds were considered but not given or refused? Why? @ -None Did you discuss the management of the patient with other professionals (professionals i.e. , [facility], [employer], lab, RT, psych nurse, social research assistant, admissions clinician, teacher, project control officer, case reviewer)? Give summary @ -No Was smoking cessation discussed for >3mins.? @ -No Was critical care preformed (if so, how long)? @ -No Were there social determinants of health that impacted care today? How? (Homelessness, low income, unemployed, alcoholism, drug addiction, transportation, low edu. Level, literacy, decrease access to med. care, retirement, rehab)? @ -No Was there de-escalation of care discussed even if they declined (Discuss DNR or withdrawal of care, Hospice)? DNR status @ -No What co-morbidities impacted this encounter? (DM, HTN, Smoking, COPD, CAD, Cancer, CVA, ARF, Chemo, Hep., AIDS, mental health diagnosis, sleep apnea, morbid obesity)? @ -None Was patient admitted / discharged? Hospital course, mention meds given and route, prescriptions, significant lab abnormalities, going to OR and other per tinent info. @ -Patient presents emergency department complaining of lower abdominal pain. Also has diarrhea. We will obtain CT abdomen pelvis as well as abdominal labs. Patient symptomatically treated with IV fluids, Toradol, morphine, Zofran, Protonix. He was in agreement this plan. Vital signs are within acceptable limits. Patient's laboratory studies remarkable for leukocytosis of 19 which could be reactive or secondary to diarrhea. Remainder the labs unremarkable including no blood on urine. CT shows proctitis versus colitis as well as a uncomplicated 4 mm right kidney stone. I discussed results with the patient. He is resting comfortably with no pain at this time. I did offer admission at this time for IV antibiotics however he instead requested to go home at this time. He will be discharged home with ODT Zofran and Tylenol 3. He will be started on Augmentin empirically as well. Patient was in agreement this plan. Strict return precautions discussed. I will provide the patient with a prescription for Augmentin. I instructed the patient to follow up with their PCP in the next 1-3 days.. I explained that the patient should return to the emergency department if they experience any worsening symptoms. Strict return precautions were discussed with the patient. The patient expressed understanding of these instructions. I answered all questions that the patient had. The patient was discharged home in fair condition with their prescriptions and follow up information. Undiagnosed new problem with uncertain prognosis? @ -No Drug Therapy requiring intensive monitoring for toxicity (Heparin, Nitro, Insulin, Cardizem)? @ -No Were any procedures done? @ -No Diagnosis/symptom? @ -Proctitis, colitis, kidney stone Acute, or Chronic, or Acute on Chronic? @ -Acute Uncomplicated (without systemic symptoms) or Complicated (systemic symptoms)? @ -Complicated Side effects of treatment? @ -No Exacerbation, Progression, or Severe Exacerbation? @ -No Poses a threat to life or bodily function? How? (Chest pain, USA, CA, pneumonia, PE, COPD, DKA, ARF, appy, cholecystitis, CVA, Diverticulitis, Homicidal, Suicidal, threat to staff... and all critical care pts) @ -Unlikely but possible if untreated - Lab Data Result diagrams: 07/04/23 10:33 07/04/23 10:33 Lab Results 07/04/23 07/04/23 07/04/23 Range/Units 10:33 10:33 10:33 WBC 19.7 H (3.8-10.6) k/uL RBC 5.60 (4.30-5.90) m/uL Hgb 16.4 (13.0-17.5) gm/dL Hct 50.2 (39.0-53.0) % MCV 89.6 (80.0-100.0) fL MCH 29.3 (25.0-35.0) pg MCHC 32.7 (31.0-37.0) g/dL RDW 12.7 (11.5-15.5) % Plt Count 362 (150-450) k/uL MPV 7.1 Neutrophils % 86 % Lymphocytes % 8 % Monocytes % 5 % Eosinophils % 1 % Basophils % 0 % Neutrophils # 16.9 H (1.3-7.7) k/uL Lymphocytes # 1.5 (1.0-4.8) k/uL Monocytes # 1.1 H (0-1.0) k/uL Eosinophils # 0.1 (0-0.7) k/uL Basophils # 0.1 (0-0.2) k/uL Sodium 138 (137-145) mmol/L Potassium 4.0 (3.5-5.1) mmol/L Chloride 105 (98-107) mmol/L Carbon Dioxide 27 (22-30) mmol/L Anion Gap 6 mmol/L BUN 10 (9-20) mg/dL Creatinine 1.03 (0.66-1.25) mg/dL Est GFR (CKD-EPI)AfAm >90 (>60 ml/min/1.73 sqM) Est GFR (CKD-EPI)NonAf 84 (>60 ml/min/1.73 sqM) Glucose 128 H (74-99) mg/dL Plasma Lactic Acid Amadou 1.2 (0.7-2.0) mmol/L Calcium 9.8 (8.4-10.2) mg/dL Total Bilirubin 0.8 (0.2-1.3) mg/dL AST 20 (17-59) U/L ALT 19 (4-49) U/L Alkaline Phosphatase 95 (38-126) U/L Total Protein 7.4 (6.3-8.2) g/dL Albumin 4.6 (3.5-5.0) g/dL Amylase 72 (30-110) U/L Lipase 82 (23-300) U/L Urine Color Urine Appearance (Clear) Urine pH (5.0-8.0) Ur Specific Franklin (1.001-1.035) Urine Protein (Negative) Urine Glucose (UA) (Negative) Urine Ketones (Negative) Urine Blood (Negative) Urine Nitrite (Negative) Urine Bilirubin (Negative) Urine Urobilinogen (<2.0) mg/dL Ur Leukocyte Esterase (Negative) 07/04/23 Range/Units 12:03 WBC (3.8-10.6) k/uL RBC (4.30-5.90) m/uL Hgb (13.0-17.5) gm/dL Hct (39.0-53.0) % MCV (80.0-100.0) fL MCH (25.0-35.0) pg MCHC (31.0-37.0) g/dL RDW (11.5-15.5) % Plt Count (150-450) k/uL MPV Neutrophils % % Lymphocytes % % Monocytes % % Eosinophils % % Basophils % % Neutrophils # (1.3-7.7) k/uL Lymphocytes # (1.0-4.8) k/uL Monocytes # (0-1.0) k/uL Eosinophils # (0-0.7) k/uL Basophils # (0-0.2) k/uL Sodium (137-145) mmol/L Potassium (3.5-5.1) mmol/L Chloride (98-107) mmol/L Carbon Dioxide (22-30) mmol/L Anion Gap mmol/L BUN (9-20) mg/dL Creatinine (0.66-1.25) mg/dL Est GFR (CKD-EPI)AfAm (>60 ml/min/1.73 sqM) Est GFR (CKD-EPI)NonAf (>60 ml/min/1.73 sqM) Glucose (74-99) mg/dL Plasma Lactic Acid Amadou (0.7-2.0) mmol/L Calcium (8.4-10.2) mg/dL Total Bilirubin (0.2-1.3) mg/dL AST (17-59) U/L ALT (4-49) U/L Alkaline Phosphatase (38-126) U/L Total Protein (6.3-8.2) g/dL Albumin (3.5-5.0) g/dL Amylase (30-110) U/L Lipase (23-300) U/L Urine Color Light Yellow Urine Appearance Clear (Clear) Urine pH 7.0 (5.0-8.0) Ur Specific Franklin >1.050 H (1.001-1.035) Urine Protein Trace H (Negative) Urine Glucose (UA) Negative (Negative) Urine Ketones Negative (Negative) Urine Blood Negative (Negative) Urine Nitrite Negative (Negative) Urine Bilirubin Negative (Negative) Urine Urobilinogen <2.0 (<2.0) mg/dL Ur Leukocyte Esterase Negative (Negative) Disposition Clinical Impression: Proctitis, Kidney stone Disposition: HOME SELF-CARE Condition: Fair Instructions (If sedation given, give patient instructions): Proctitis (ED) Prescriptions: Amoxic-Pot Clav 875-125Mg [Augmentin 875-125] 1 tab PO Q12HR 14 Days #28 tab Is patient prescribed a controlled substance at d/c from ED?: No Referrals: Alex Hernandez MD [Primary Care Provider] - 1-2 days Time of Disposition: 13:21
[2023-07-04] MEDS: ONDANSETRON 4 MG ODT STARTER PACK 2 TAB BTL PO STA (13:30)
[2023-07-04] MEDS: AMOXIC-POT CLAV 875-125MG 1 EACH TAB PO STA (13:30)
[2023-07-04] MEDS: ACET/COD 300 MG/30 MG STARTER PACK 6 TAB BTL PO STA (13:30)
== END 2023-07-04 13:36 | disposition home or self-care (01) ==
LOC: EC 09:09
DX: K52.9 Noninfective gastroenteritis and colitis, unspecified (principal); K62.89 Other specified diseases of anus and rectum; N20.2 Calculus of kidney with calculus of ureter; F17.200 Nicotine dependence, unspecified, uncomplicated; Z88.5 Allergy status to narcotic agent; Z91.018 Allergy to other foods
CPT/HCPCS: 99284; 96374; 96375 ×3; 96361 ×3; 36415; 80053; 82150; 83605; 83690; 85025; 81003; 74177; J2270; J2405; J1885; S0119; C9113; Q9967

== ENCOUNTER → 2023-07-24 | Outpatient (CLI) | payer OTHER ==
--- NOTE | 2023-07-24 10:54 | CT ---
EXAMINATION TYPE: CT abdomen pelvis wo con DATE OF EXAM: 07/24/2023 COMPARISON: 07/04/2023 and previous 03/06/2014 HISTORY: 53-year-old male R10.32, left lower quadrant pain, left flank pain CT DLP: 300.2 mGycm. Automated exposure control for dose reduction was used. TECHNIQUE: Contiguous axial scanning of the abdomen and pelvis without IV contrast. Coronal and sagit rosanne reconstructions performed. FINDINGS: Heart normal size without pericardial effusion. Lung bases clear without pleural effusion. Postsurgical change of prior David fundoplication. Noncontrast appearance of the liver, gallbladder, right adrenal gland, spleen, and pancreas show no g ross abnormality. Redemonstrated indeterminate nodule left adrenal gland measuring 1.9 cm, unchanged from recent prior. But slightly increased from 2015 where it measured 1.2 cm. Consider annual surveillance follow-up. 4 nonobstructive right renal calculi measuring up to 3 mm. 2 nonobstructive left renal calculi measuring up to 4 mm. No hydronephrosis on either side. However, we note a 6 cm calcification near the right UPJ region, ax ial image 57. No dilated small bowel, free fluid, or free air. No mesenteric or retroperitoneal lymphadenopathy. Moderate atherosclerotic calcifications infrarenal abdominal aorta without aneurysm. Normal appendix. Scattered mild to moderate stool. Mild circumferential wall thickening mid to distal sigmoid colon shows improvement compared to 07/04/2023. Some residual wall thickening remains. The pr evious surrounding inflammatory change has resolved. Moderate circumferential bladder wall thickening. Prostate gland upper limits of normal at 4.0 cm. M ultiple pelvic phleboliths. No abnormal fluid collection in the pelvis or pelvic lymphadenopathy. Bones: Moderate to severe degenerative disc disease T10-T11. Hypertrophic facet arthropathy lower lum bar spine with bilateral L5 pars and grade 1 anterolisthesis. IMPRESSION: 1. Small bilateral nonobstructive renal calculi measuring up to 4 mm. 2. No hydronephrosis on either side despite a 6 mm stone at or just beyond the right UPJ, minimally progressed from 07/04/2023. 3. Residual mild wall thickening of the mid to distal sigmoid colon but with significant interval im provement. The surrounding inflammation has resolved. A residual mild colitis may be present. 4. Bilateral L5 pars defects with a trace grade 1 anterolisthesis L5-S1 and hypertrophic facet arthr opathy lower lumbar spine. 5. Moderate circumferential bladder wall thickening may reflect chronic bladder wall hypertrophy. Co rrelate to exclude cystitis. 6. Consider annual surveillance follow-up for a 1.9 cm left adrenal nodule, stable from recent prior slightly increased from 2015 where it measured 1.2 cm.
== END | disposition home or self-care (01) ==
LOC: RADCTMAIN 10:12
PROVIDERS: ATTEND Family Medicine
DX: N20.0 Calculus of kidney (principal); M43.17 Spondylolisthesis, lumbosacral region; M47.816 Spondylosis without myelopathy or radiculopathy, lumbar region; M47.817 Spondylosis without myelopathy or radiculopathy, lumbosacral region; M43.16 Spondylolisthesis, lumbar region
CPT/HCPCS: 74176

== ENCOUNTER → 2023-08-29 | Outpatient (CLI) | payer OTHER ==
[2023-08-29 15:24] LABS: HCT 45.9 % (39.6-50.0); HGB 14.9 g/dL (13.0-17.0); MCH 29.3 pg (27.0-32.0); MCHC 32.5 g/dL (32.0-37.0); MCV 90.4 FL (80.0-97.0); Mean Platelet Volume 8.9 FL (9.5-12.2); NRBC Per 100 WBC 0 X 10*3/uL (0.00-0.01); Platelet Count 319 X 10*3/uL (140-440); RBC 5.08 X 10*6/uL (4.40-5.60); RDW 13.1 % (11.5-14.5); WBC 8.59 X 10*3/uL (4.50-10.00)
[2023-08-29 15:31] LABS: ALT 29 U/L (10-49); AST 19 U/L (14-35); Albumin 4.7 g/dL (3.8-4.9); Albumin/Globulin Ratio 1.96 Ratio (1.60-3.17); Alkaline Phosphatase 104 U/L (41-126); BUN/Creat Ratio 4.64 Ratio (12.00-20.00); Blood Urea Nitrogen 5.1 mg/dL (9.0-27.0); Calcium 9.9 mg/dL (8.7-10.3); Carbon Dioxide 26.3 mmol/L (21.6-31.8); Chloride 104 mmol/L (96-109); Globulin 2.4 g/dL (1.6-3.3); Glucose 91 mg/dL (70-110); Sodium 141 mmol/L (135-145); Total Bilirubin 0.3 mg/dL (0.3-1.2); Total Protein 7.1 g/dL (6.2-8.2)
[2023-08-29 21:28] LABS: NT-Pro-B-Type Natriuretic Pept 141 pg/mL (0-125)
== END | disposition home or self-care (01) ==
LOC: RADUSWWP 09:04
PROVIDERS: ATTEND Student in an Organized Health Care Education/Training Program
DX: I73.9 Peripheral vascular disease, unspecified (principal)
CPT/HCPCS: 80053; 80061; 83036; 83880; 85027

== ENCOUNTER → 2024-04-24 | Outpatient (CLI) | payer OTHER ==
[2024-04-25 10:24] LABS: NT-Pro-B-Type Natriuretic Pept <36 pg/mL (0-125)
== END | disposition home or self-care (01) ==
LOC: LABWHC1 10:43
PROVIDERS: ATTEND Student in an Organized Health Care Education/Training Program
DX: Z13.6 Encounter for screening for cardiovascular disorders (principal); I50.9 Heart failure, unspecified; D72.9 Disorder of white blood cells, unspecified; E11.9 Type 2 diabetes mellitus without complications; E78.5 Hyperlipidemia, unspecified; E03.9 Hypothyroidism, unspecified; R79.89 Other specified abnormal findings of blood chemistry
CPT/HCPCS: 36415; 83880; 84443

== ENCOUNTER 2024-06-24 09:46 | Day surgery (SDC) | payer OTHER ==
[2024-06-21 11:09] VITALS: BMI 22.9
[2024-06-24 10:54] LABS: Basophils # (A) 0.06 10*3/uL (0.00-0.10); Basophils % (A) 0.9 %; Eosinophils # (A) 0.17 10*3/uL (0.04-0.35); Eosinophils % (A) 2.6 %; HCT 44.2 % (39.6-50.0); HGB 15.4 g/dL (13.0-17.0); Lymphocytes # (A) 1.96 10*3/uL (0.90-5.00); Lymphocytes % (A) 29.7 %; MCH 30.9 pg (27.0-32.0); MCHC 34.8 g/dL (32.0-37.0); MCV 88.8 fL (80.0-97.0); Mean Platelet Volume 8.5 fL (9.5-12.2); Monocytes # (A) 0.48 10*3/uL (0.20-1.00); Monocytes % (A) 7.3 %; Neutrophils # (A) 3.89 10*3/uL (1.80-7.70); Neutrophils % (A) 58.9 %; Platelet Count 236 10*3/uL (140-440); RBC 4.98 10*6/uL (4.40-5.60); RDW 12.6 % (11.5-14.5)
[2024-06-24 10:58] LABS: ALT 18 U/L (4-49); AST 18 U/L (17-59); African American GFR (CKD) >90 (>60 ml/min/1.73 sqM); Albumin 4.4 g/dL (3.5-5.0); Alkaline Phosphatase 64 U/L (38-126); Anion Gap 8 mmol/L; Blood Urea Nitrogen 11 mg/dL (9-20); Calcium 9.8 mg/dL (8.4-10.2); Carbon Dioxide 27 mmol/L (22-30); Chloride 103 mmol/L (98-107); Glucose 96 mg/dL (74-99); Non-African American GFR(CKD) >90 (>60 ml/min/1.73 sqM); Potassium 4.5 mmol/L (3.5-5.1); Sodium 138 mmol/L (137-145); Total Bilirubin 0.4 mg/dL (0.2-1.3)
[2024-06-24] MEDS: IV FLUID CONTINUATION 1,000 ML IV ONE (11:05)
[2024-06-24] MEDS ORDERED: fentaNYL (PF) 50 MCG/ML 2 ML AMP ONE (11:19)
[2024-06-24] MEDS ORDERED: ISOPROTERENOL 250 MCG/1.25 ML SYR IV ONE (11:19)
[2024-06-24] MEDS ORDERED: MIDAZOLAM 2 MG/2 ML VIAL ONE (11:19)
[2024-06-24] MEDS ORDERED: PROPOFOL 10 MG/ML 20 ML VIAL IV ONE (11:19)
--- NOTE | 2024-06-24 11:44 | P.HPCAR ---
History of Present Illness This is Dr. Terrazas dictating an H/P on this patient The patient was interviewed and examined IMPRESSION / ASSESSMENT: Recurrent palpitations Documented SVT greater than 170 bpm, breakthrough episodes on metoprolol Hypertension Moderate PAD Nonobstructive CAD with a 50% LAD stenosis normal TSH PLAN: Diagnostic EP study, possible radiofrequency ablation Patient stable from a cardiovascular standpoint to proceed HPI Continues to have episodes of palpitations. These palpitations make him dizzy. They continue despite medical treatment with metoprolol No fever chills cough expectoration No chest pain ROS: No fever chills or rigors, no cough, phlegm or expectoration, no nausea, vomiting or diarrhea, no hematuria, dysuria, no musculoskeletal complaints, no strokes or seizures, no skin lesions. EXAMINATION: Afebrile pulse rate 90 blood pressure 164/94 mmHg Heart sounds are normal Breath sounds are clear No murmurs no gallop no rub Extremities warm no edema No JVD REVIEW OF LABS, ECG & MEDICAL DATA Labs were reviewed. White count normal Hemoglobin 15.4 Platelet count 236,000 Sodium 138 potassium 4.5 BUN 11 and creatinine 0.97 Liver function normal TSH 1.1 Physical Exam Vitals: Vital Signs Temp Pulse Resp BP Pulse Ox 06/24/24 10:56 97.4 F L 91 16 164/94 98 Intake and Output 06/23/24 06/24/24 06/24/24 22:59 06:59 14:59 Intake Total 50 Balance 50 Intake: IV 50 Other: Weight 71.9 kg Past Medical History Past Medical History: Atrial Fibrillation, COPD, GERD/Reflux, Hyperlipidemia, Hypertension, Mitral Valve Prolapse (MVP) Additional Past Medical History / Comment(s): hiatal hernia, Bronchitis usually every year, kidney stones, 2L O2 at night History of Any Multi-Drug Resistant Organisms: None Reported Past Surgical History: Heart Catheterization, Orthopedic Surgery Additional Past Surgical History / Comment(s): ORAL SURGERY and right knee surgery 2019, Past Anesthesia/Blood Transfusion Reactions: No Reported Reaction Additional Past Anesthesia/Blood Transfusion Reaction / Comment(s): no hx blood tranfusion Smoking Status: Current every day smoker - Past Family History Sister(s) Family Medical History: Cancer Additional Family Medical History / Comment(s): 2 sisters with female and breast CA Mother Family Medical History: Cancer Additional Family Medical History / Comment(s): breast Physical Examination Vital Signs Temp Pulse Resp BP Pulse Ox 06/24/24 10:56 97.4 F L 91 16 164/94 98 Intake and Output 06/23/24 06/24/24 06/24/24 22:59 06:59 14:59 Intake Total 50 Balance 50 Intake: IV 50 Other: Weight 71.9 kg Results 06/24/24 10:35 06/24/24 10:35 Cardiac Enzymes 06/24/24 Range/Units 10:35 AST 18 (17-59) U/L CBC 06/24/24 Range/Units 10:35 WBC 6.60 (4.50-10.00) 10*3/uL RBC 4.98 (4.40-5.60) 10*6/uL Hgb 15.4 (13.0-17.0) g/dL Hct 44.2 (39.6-50.0) % Plt Count 236 (140-440) 10*3/uL Comprehensive Metabolic Panel 06/24/24 Range/Units 10:35 Sodium 138 (137-145) mmol/L Potassium 4.5 (3.5-5.1) mmol/L Chloride 103 (98-107) mmol/L Carbon Dioxide 27 (22-30) mmol/L BUN 11 (9-20) mg/dL Creatinine 0.97 (0.66-1.25) mg/dL Glucose 96 (74-99) mg/dL Calcium 9.8 (8.4-10.2) mg/dL AST 18 (17-59) U/L ALT 18 (4-49) U/L Alkaline Phosphatase 64 (38-126) U/L Total Protein 7.0 (6.3-8.2) g/dL Albumin 4.4 (3.5-5.0) g/dL Current Medications Generic Name Dose Route Start Last Admin Trade Name Freq PRN Reason Stop Dose Admin Sodium Chloride 1,000 mls @ 20 mls/hr 06/24/24 05:59 Saline 0.9% IV 07/24/24 05:58 .Q24H JENNIE Lactated Ringer's 1,000 mls @ 20 mls/hr 06/24/24 05:59 Lactated Ringers IV 07/24/24 05:58 .Q24H JENNIE Intake and Output 06/23/24 06/24/24 06/24/24 22:59 06:59 14:59 Intake Total 50 Balance 50 Intake: IV 50 Other: Weight 71.9 kg Patient Weight 06/25/24 06:59 Weight 71.9 kg 06/24/24 10:35 06/24/24 10:35
[2024-06-24] MEDS: LIDOCAINE 1% INJ 10MG/ML (20 ML MDV) SQ ONE ×3 (12:04→12:15)
[2024-06-24] MEDS: HEPARIN SODIUM (1,000 UNIT/ML) 1,000 UNIT in SODIUM CHLORIDE 0.9% 1,000 ML IRRIGATION ONE (13:50)
--- NOTE | 2024-06-24 14:29 | P.EPPROC ---
- EP Procedure Note Electrophysiology Procedure Note: Diagnosis recurrent palpitations committed SVT greater than 170 beats minute Final diagnosis Typical AV julian reentrant tachycardia, status post successful ablation Tachycardias rendered noninducible Occasional residual antegrade slow pathway conduction with a single echo without induction of SVT on or off Isopril Details Patient was brought to the EP lab in a fasting state. Written informed consent was obtained prior to the procedure. The right and left groins were prepped and draped as a protocol. Placed in the right left femoral veins. Diagnostic catheters were positioned in the high right atrium His bundle area right ventricle and coronary sinus Sinus cycle length 870 ms, WA interval 181 ms, QRS 101 ms and QT 361 ms AH 104 ms and HV interval 35 ms Straight pacing did not reveal any delta waves Para-Hisian pacing did not reveal any septal accessory pathway During atrial pacing, single echo beats were consistently induced Sinus node recovery times were 973 and 900 9 ms VA Wenckebach block 230 ms Ventricle extrastimulation was performed. The retrograde conduction was midline and decremental Isopril started. Straight pacing was performed Tachycardia was induced at a pacing cycle length of 430 ms This was consistent with AV julian reentry with a short septal time. Ventricular pacing maneuvers revealed a VAV response Tachycardia was terminated with pacing A long sheath was placed in the heart along with an irrigated tip RF ablation catheter 3D electroanatomic mapping was performed. The hiss cloud was mapped. The coronary sinus os and the CS was mapped. Tricuspid annulus was tagged RF ablation was performed in the slow pathway area just outside and anterior to the coronary sinus. Junctional rhythm was obtained This area was consulted with several other lesions At the end of the procedure only occasional single echo beats were noted No inducible SVT despite Isopril infusion, or during Isuprel recovery Atrial and ventricular extrastimulation of both performed along with straight pacing from 3 sites Patient Toller the procedure well without any acute complications. Venous punctures were closed with Mynx device
[2024-06-24] MEDS: LACTATED RINGERS 1,000 ML IV SCH (15:21)
[2024-06-24] MEDS: SODIUM CHLORIDE 0.9% 1,000 ML IV SCH (15:21)
[2024-06-24] MEDS: ACETAMINOPHEN IV (For NPO) 1,000 MG in EMPTY BAG 1 BAG IVPB ONE (16:00)
[2024-06-24] MEDS: IPRATROPIUM-ALBUTEROL 3 ML NEB INHALATION SCH (19:54)
[2024-06-24] MEDS: SYMBICORT 160-4.5 MCG INHALER INHALATION SCH (19:54)
[2024-06-24] MEDS ORDERED: TIOTROPIUM 2.5 MCG INHALER INHALATION SCH (20:00)
[2024-06-24] MEDS: RIVAROXABAN 2.5 MG TABLET PO SCH (20:39)
[2024-06-24] MEDS: cilostazoL 100 MG TAB PO SCH (20:39)
[2024-06-24] MEDS: METOPROLOL SUCCINATE (ER) 50 MG TAB.ER.24H PO SCH (20:40)
[2024-06-25] MEDS: ACETAMINOPHEN TAB 325 MG TAB PO PRN (00:38)
[2024-06-25] MEDS: TIOTROPIUM 2.5 MCG INHALER INHALATION SCH (08:28)
[2024-06-25] MEDS: FAMOTIDINE 20 MG TAB PO SCH (08:29)
[2024-06-25] MEDS: EZETIMIBE 10 MG TAB PO SCH (08:29)
[2024-06-25] MEDS: ASPIRIN 81 MG PO SCH (08:29)
[2024-06-25] MEDS: PANTOPRAZOLE 40 MG TABLET PO SCH (08:29)
[2024-06-25 08:59] VITALS: BP 113/70; PULSE 83; RESP 16; TEMP 98
--- NOTE | 2024-06-28 19:11 | P.DS ---
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 Tachycardia rendered noninducible Intermittent, occasional echo beats remain Plan Continue current medications Follow-up with primary surgical instruments inspector in the next 1 week Patient Condition at Discharge: Fair Plan - Discharge Summary Discharge Rx Participant: No New Discharge Prescriptions: Continue RX: Tiotropium 2.5 Mcg/Puff [Spiriva Respimat 2.5 Mcg] 1 puff INHALATION HS RX: Albuterol Sulfate [Ventolin HFA] 1 - 2 puff INHALATION RT-Q4H PRN PRN Reason: Shortness Of Breath RX: Ezetimibe [Zetia] 10 mg PO DAILY RX: Famotidine [Pepcid] 20 mg PO DAILY RX: Pantoprazole [Protonix] 40 mg PO DAILY RX: Rivaroxaban [Xarelto] 2.5 mg PO BID RX: Nicotine [Nicoderm Cq 21 mg] 21 mg TRANSDERM DAILY RX: Ipratropium-Albuterol Nebulize [Duoneb 0.5 mg-3 mg/3 ml Soln] 3 ml INHALATION BID RX: Aspirin 81 mg PO DAILY RX: Budesonide/Formoterol Fumarate [Symbicort 160-4.5 Mcg Inhaler] 2 puff INHALATION RT-BID RX: Metoprolol Succinate [Metoprolol Succinate ER] 50 mg PO BID RX: cilostazoL [Pletal] 100 mg PO BID Discharge Medication List RX: Budesonide/Formoterol Fumarate [Symbicort 160-4.5 Mcg Inhaler] 2 puff INHALATION RT-BID 08/12/22 [History] RX: Tiotropium 2.5 Mcg/Puff [Spiriva Respimat 2.5 Mcg] 1 puff INHALATION HS 12/04/22 [History] RX: Albuterol Sulfate [Ventolin HFA] 1 - 2 puff INHALATION RT-Q4H PRN 07/04/23 [History] RX: Ezetimibe [Zetia] 10 mg PO DAILY 07/04/23 [History] RX: Famotidine [Pepcid] 20 mg PO DAILY 06/21/24 [History] RX: Ipratropium-Albuterol Nebulize [Duoneb 0.5 mg-3 mg/3 ml Soln] 3 ml INHALATION BID 06/21/24 [History] RX: Metoprolol Succinate [Metoprolol Succinate ER] 50 mg PO BID 06/21/24 [History] RX: Nicotine [Nicoderm Cq 21 mg] 21 mg TRANSDERM DAILY 06/21/24 [History] RX: Pantoprazole [Protonix] 40 mg PO DAILY 06/21/24 [History] RX: Rivaroxaban [Xarelto] 2.5 mg PO BID 06/21/24 [History] RX: cilostazoL [Pletal] 100 mg PO BID 06/21/24 [History] RX: Aspirin 81 mg PO DAILY 06/24/24 [History] Follow up Appointment(s)/Referral(s): Darshan Terrazas MD [STAFF PHYSICIAN] - 1 Week (office will call for appoinment) Patient Instructions/Handouts: Cardiac Ablation (DC) Discharge Disposition: HOME SELF-CARE
== END 2024-06-25 10:13 | disposition home or self-care (01) ==
LOC: CATHEP 09:46 → 6NMEDSUR 14:00 → CATHEP 06-25 10:13
PROVIDERS: ATTEND Internal Medicine Clinical Cardiac Electrophysiology
DX: I47.19 Other supraventricular tachycardia (principal); I44.1 Atrioventricular block, second degree; I34.1 Nonrheumatic mitral (valve) prolapse; I48.91 Unspecified atrial fibrillation; I25.10 Atherosclerotic heart disease of native coronary artery without angina pectoris; I10 Essential (primary) hypertension; J44.9 Chronic obstructive pulmonary disease, unspecified; E78.5 Hyperlipidemia, unspecified; F17.200 Nicotine dependence, unspecified, uncomplicated; Z79.01 Long term (current) use of anticoagulants; Z79.02 Long term (current) use of antithrombotics/antiplatelets; Z79.82 Long term (current) use of aspirin; Z79.899 Other long term (current) drug therapy
CPT/HCPCS: 94640 ×3; 93623; 93653; 86900; 86901; 80053; 84443; 85025; 86850; C1894; C1769; C1760; C2630; C1730 ×2; C1893; C1732; J2250; J2003; J3010; J1644; J0131; J2704

== ENCOUNTER 2024-09-03 06:35 | Day surgery (SDC) | payer OTHER ==
[2024-08-31 15:38] VITALS: BMI 22.5
[~2024-09-03 06:35] MED LIST changes: -ACETAMINOPHEN TAB 500 MG TAB PO PRN; +ALPRAZolam 0.25 MG TAB PO PRN; +ALPRAZolam 0.5 MG TAB PO PRN; -DEXAMETHASONE SOD PHOSPHATE 4 MG/ML 1 ML VIAL IV ONE; +HEPARIN SODIUM,PORCINE (1 ML) 2,500 UNIT in SODIUM CHLORIDE 0.9% 250 ML IRRIGATION PRN; +HEPARIN SODIUM,PORCINE 10,000 UNIT in SODIUM CHLORIDE 0.9% 1,000 ML IRRIGATION PRN; -HEPARIN SODIUM,PORCINE/PF 5,000 UNIT/0.5 ML SYRINGE SQ PRN; -LIDOCAINE 1% (10MG/ML) FOR IV START INTRADERMA PRN; -MIDAZOLAM 2 MG/2 ML VIAL IV PRN; -ONDANSETRON 4 MG/2 ML VIAL IVP ONE; +ZOLPIDEM 5 MG TAB PO PRN
[2024-09-03] MEDS: EMPTY BAG 1 BAG with SODIUM CHLORIDE 0.9% 1,000 ML IV SCH (07:05)
[2024-09-03] MEDS: ASPIRIN 81 MG PO STA (07:07)
[2024-09-03] MEDS: IV FLUID CONTINUATION 1,000 ML IV ONE (07:09)
[2024-09-03 07:12] LABS: Basophils # (A) 0.05 10*3/uL (0.00-0.10); Basophils % (A) 0.7 %; Eosinophils # (A) 0.23 10*3/uL (0.04-0.35); Eosinophils % (A) 3.1 %; HCT 43.2 % (39.6-50.0); HGB 14.8 g/dL (13.0-17.0); Lymphocytes # (A) 2.32 10*3/uL (0.90-5.00); Lymphocytes % (A) 31.3 %; MCH 30.7 pg (27.0-32.0); MCHC 34.3 g/dL (32.0-37.0); MCV 89.6 fL (80.0-97.0); Monocytes # (A) 0.60 10*3/uL (0.20-1.00); Monocytes % (A) 8.1 %; Neutrophils # (A) 4.15 10*3/uL (1.80-7.70); Neutrophils % (A) 56.0 %; Platelet Count 253 10*3/uL (140-440); RBC 4.82 10*6/uL (4.40-5.60); RDW 12.7 % (11.5-14.5); WBC 7.41 10*3/uL (4.50-10.00)
[2024-09-03 07:34] LABS: African American GFR (CKD) >90 (>60 ml/min/1.73 sqM); Anion Gap 11 mmol/L; Blood Urea Nitrogen 7 mg/dL (9-20); Calcium 9.9 mg/dL (8.4-10.2); Carbon Dioxide 21 mmol/L (22-30); Chloride 105 mmol/L (98-107); Glucose 101 mg/dL (74-99); Non-African American GFR(CKD) >90 (>60 ml/min/1.73 sqM); Sodium 137 mmol/L (137-145)
[2024-09-03 07:46] LABS: Potassium 4.4 mmol/L (3.5-5.1)
[2024-09-03] MEDS: MIDAZOLAM 2 MG/2 ML VIAL IVP ONE (12:30)
[2024-09-03] MEDS: fentaNYL (PF) 50 MCG/ML 2 ML AMP IVP ONE (12:30)
[2024-09-03] MEDS: LIDOCAINE 1% INJ 10MG/ML (20 ML MDV) SQ ONE (12:32)
[2024-09-03] MEDS: HEPARIN SODIUM (1,000 UNIT/ML) 1,000 UNIT in SODIUM CHLORIDE 0.9% 1,000 ML IRRIGATION ONE (12:36)
[2024-09-03] MEDS: HEPARIN SODIUM,PORCINE (1 ML) 2,500 UNIT in SODIUM CHLORIDE 0.9% 250 ML IRRIGATION ONE (12:36)
[2024-09-03] MEDS: IOPAMIDOL-370 100ML BTL INJ ONE (12:41)
[2024-09-03] MEDS ORDERED: NALOXONE 0.4 MG/ML 1 ML VIAL IVP PRN (12:49)
--- NOTE | 2024-09-03 12:54 | P.PCN ---
Date of Procedure: 09/03/24 Operative Findings: AN ABDOMINAL AORTOGRAM AND BILATERAL LOWER EXTREMITIES RUNOFF PERFORMING PHYSICIAN: Arash Barkley MD PROCEDURE PERFORMED: 1. An abdominal aortogram 2. Bilateral lower extremities runoff 3. Ultrasound-guided access of the left common femoral artery INDICATION: Right lower extremity critical limb ischemia with resting pain but no tissue loss COMPLICATION: None LEVEL OF SEDATION: Moderate was sedation length of moderate to sedation length of 12 minutes APPROACH: Right common femoral artery PROCEDURE DESCRIPTION: After obtaining informed consent and explaining the procedure benefits, risks, and complications, the patient was brought to the cardiac supervisor laboratory. The left groin was prepped and draped in sterile fashion. The left common femoral artery was cannulated using micropuncture technique, under ultrasound guidance. A micropuncture wire was advanced, and the micropuncture sheath was advanced over the wire, then the micropuncture sheath was exchanged over an 0.35 wire into a 5-Nauruan sheath dilator assembly then the wire and dilator were removed and sheath was flushed. We did an abdominal aortogram and bilateral lower extremities runoff using 5- Nauruan pigtail catheter using a power injection. The catheter was initially placed at the level of the renal arteries, and it was pulled into above the bifurcation of the aorta into right and left common iliac arteries. The procedure was completed and there was no complications. SELECTIVE PERIPHERAL ANGIOGRAM: The abdominal aorta: Is angiographically normal The common iliac arteries: And the left common iliac artery appeared to be normal The right common iliac artery has critical lesion by the ostium The external iliac arteries: Both external iliac arteries are patent The internal iliac arteries: Both internal iliac arteries are patent The common femoral arteries: Both common femoral arteries are patent Superficial femoral arteries: Both SFA are patent Popliteal arteries: Both popliteals are patent Below the knees: Three vessels runoff below the knee bilaterally CONCLUSION: 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
--- NOTE | 2024-09-03 13:30 | IR ---
EXAMINATION TYPE: IR angio abdominal w runoff DATE OF EXAM: 09/03/2024 12:58 PM COMPARISON: Pre Operative Images if available both CT/MRI or plain film CLINICAL INDICATION: Male, 54 years old with history of pvd, right leg pain, 1.5 min fluoro time; TECHNIQUE: IR angio abdominal w runoff, multiple fluoroscopic images provided for procedure. DAP: 1368 mGym2 Gycm2 uGym2 cGycm2 or equivalent. FINDINGS: IMPRESSION: 1. Report was generated for administrative purposes only. 2. Please see the operative/procedural note for further details. [facility], , 09/03/2024 1:28 PM
[2024-09-03 17:34] VITALS: RESP 16; TEMP 98
[2024-09-03 17:36] VITALS: BP 119/74; PULSE 89
[2024-09-03] MEDS: SODIUM CHLORIDE 0.9% 1,000 ML in EMPTY BAG 1 BAG IV SCH (17:43)
== END 2024-09-03 19:01 | disposition home or self-care (01) ==
LOC: CATHCVL 06:35 → 6NMEDSUR 12:42 → CATHCVL 19:01
PROVIDERS: ATTEND Internal Medicine Interventional Cardiology
DX: I70.221 Atherosclerosis of native arteries of extremities with rest pain, right leg (principal); I47.19 Other supraventricular tachycardia; I25.10 Atherosclerotic heart disease of native coronary artery without angina pectoris; F17.210 Nicotine dependence, cigarettes, uncomplicated; Z79.82 Long term (current) use of aspirin; Z79.899 Other long term (current) drug therapy
CPT/HCPCS: 36245; 80048; 85025; J2250; J1644 ×2; J2003; J3010; Q9967